=== PATIENT | male | born 1960 | race Caucasian/White ===

== ENCOUNTER 2020-06-30 08:24 | Emergency (ER) | payer OTHER, SELFPAY ==
[2020-06-30 08:27] VITALS: BP 192/114; PULSE 69; RESP 19; O2SAT 94; BMI 37.3
--- NOTE | 2020-06-30 08:31 | CT_ITS ---
WS: [id number] CT HEAD NONCONTRAST HISTORY: Symptoms of Acute Stroke TECHNIQUE: Contiguous axial imaging performed through the brain in 2.5 mm imaging. Bone and soft tiss ue windows. Sagittal and coronal reformats reviewed. All CT scans at [facility] use at ast one of these dose optimization techniques: automated exposure control; mA and/or kV adjustment pe r patient size (includes targeted exams where dose is matched to clinical indication); or iterative r econstruction. DLP: 914.74 mGy.cm COMPARISON: None available. No acute intracranial hemorrhage, midline shift or mass effect. Mild chronic microvascular ischemic c hanges. No atrophy or prior infarcts or herniation. 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 Ventricles: Normal size with no hydrocephalus. No inferior displacement of the cerebellar tonsils. Paranasal sinuses: Extensive opacification of the ethmoid air cells. Moderate opacification of the fr ontal sinuses and frontal ethmoid recess and sphenoid sinus. No air-fluid levels. Mild mucoperiosteal thickening maxillary sinuses. Mastoid air cells: Well pneumatized. Calvarium and scalp: Skull is intact with no soft tissue edema or swelling. CT/CT head wo con* [id number] IMPRESSION: 1. No acute intracranial hemorrhage or edema. 2. Mild chronic microvascular ischemic disease. 3. Pansinusitis. 4. 10 mm pineal gland cyst.
--- NOTE | 2020-06-30 08:31 | ECG_ITS ---
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 Measurements Intervals [place] Rate: 71 P: 48 LA: 160 QRS: 7 QRSD: 94 T: 36 QT: 351 QTc: 382 Interpretive Statements SINUS RHYTHM WITH SINUS ARRHYTHMIA No previous ECG available for comparison Electronically Signed On 06-30-2020 19:10:14 WHITE WASHER PILER by Paris Parada M.D. [id number] f
[2020-06-30 08:37] VITALS: O2SAT 95
--- NOTE | 2020-06-30 08:40 | PC.NURSE ---
pt to CT by stretcher with tech
[2020-06-30] MEDS: hyDRALAzine 50 mg Tablet PO (09:03)
[2020-06-30] MEDS: amlodipine 5 mg Tablet PO (09:05)
[2020-06-30 09:08] VITALS: BP 168/105; PULSE 71; RESP 14; O2SAT 92
[2020-06-30 09:15] LABS: Basophils # 0.1 10^3/uL (0.0-0.1); Basophils % 0.9 %; Eosinophils # 0.6 10^3/uL (0.0-0.8); Eosinophils % 9.7 %; Hemoglobin 16.9 g/dL (11.7-16.6); Lymphocytes # 1.9 10^3/uL (0.8-4.8); Lymphocytes % 33.4 %; Mean Corpuscular HGB Conc 33.1 g/dL (30.0-36.0); Mean Corpuscular Hemoglobin 30.1 pg (28.0-34.0); Mean Corpuscular Volume 90.9 fL (80-94); Mean Platelet Volume 9.2 fL (7.4-10.4); Monocytes # 0.6 10^3/uL (0.2-0.9); Monocytes % 10.8 %; Neutrophils # 2.54 10^3/uL (1.8-7.7); Neutrophils % 44.8 %; Nucleated Red Blood Cells % 0 %; Platelet Count 228 10^3/cmm (130-400); Red Blood Count 5.61 10^6/uL (4.1-5.3); Red Cell Distribution Width 12.5 % (12.1-15.1); White Blood Count 5.7 10^3/uL (4.0-10.0)
--- NOTE | 2020-06-30 09:15 | W.ED.NEUROSD ---
HPI - Neuro Symptoms/Deficit General: Chief Complaint: Neuro Symptoms/Deficit Stated Complaint: stroke-like symptoms Time Seen by Provider: 06/30/20 08:28 History of Present Illness: HPI Narrative: 60-year-old male presents to the emergency room with complaints of right-sided weakness. He had numbness and tingling some weakness on the right side yesterday began while he was driving in a car it resolved spontaneously. He had a second episode this morning while at rest which again resolved spontaneously. Both episode lasted about 30 minutes. Yesterday he was seen in a walk-in clinic afterward he was noticed that his blood pressure was elevated but it improved spontaneously and he had no change in his medication. He is on lisinopril and metoprolol he has not run out of his medications or made any changes recently. He denies any chest pain. He is not having difficulty with speech or swallowing or vision with these episodes, he has had some difficulty with balance. Particularly yesterday when he had the episode of right-sided weakness he was going up some stairs he got the numbness tingling and weakness and had some dizziness he sat for a time and seem to get better when he first stood up he states his balance felt significantly altered. That has also completely resolved at this point. Denies any other recent symptoms of illness and no chest pain abdominal pain difficulty with bowel bladder or breathing. Onset (ago): hour(s) Timing confirmed by: spouse Location: right face, right arm and right leg History of same: Yes Severity: mild Quality: numb and tingling Relieving factors: none Exacerbating factors: none Associated symptoms: Deny chest pain, cough, diaphoresis, fevers/chills, headache(s), anorexia, malaise, nausea, seizures, short of breath, syncope, tingling, vertigo, vomiting, weakness or other Treatments Prior to Arrival: none Review of Systems Const: Denies: malaise or diaphoresis ENMT: Denies: throat pain, ear or mastoid pain, nasal discharge or nasal congestion Card: Denies: chest pain or syncope Resp: Denies: dyspnea, productive cough or non-productive cough GI: Denies: nausea or vomiting : Denies: flank pain, dysuria, urinary frequency or urinary urgency Skin/Breast: Denies: rash or pruritus Neuro: Denies: vertigo PFS ED PFSH: Medical History (Updated 06/30/20 @ 15:08 by Gordon Cruz DO) Hypertension NIH stroke score NIHSS: Level Of Consciousness - 1a: 0 Level Of Consciousness Questions - 1b: Both Correct Level Of Consciousness Commands - 1c: Both Correct Best Gaze - 2: Normal Visual Obregon - 3: No Visual Loss Facial Palsy - 4: Normal Motor Arm Right - 5: No Drift Motor Arm Left - 5: No Drift Motor Leg Right - 6: No Drift Motor Leg Left - 6: No Drift Limb Ataxia - 7: Absent Sensory - 8: Normal Best Language - 9: No Aphasia Dysarthia - 10: Normal Extinction And Inattention - 11: 0 Score: Total Score: 0 Physical Exam Const: COMMON NORMALS: no acute distress GENERAL APPEARANCE: cooperative and comfortable ORIENTATION/CONSCIOUSNESS: Yes awake, Yes oriented to person, Yes oriented to place and Yes oriented to time HENMT: COMMON NORMALS: normocephalic, atraumatic, hearing grossly normal bilaterally, external ears normal, EAC's normal, TM's normal bilaterally, Normal nasal mucous membranes and turbinates present, moist oral mucous membranes and oropharynx normal HEAD & SCALP: normocephalic and atraumatic NOSE: Normal nasal mucous membranes and turbinates present EXTERNAL EAR: Yes external ears normal EXTERNAL AUDITORY CANAL: EAC's normal TYMPANIC MEMBRANE: TM's normal bilaterally Eye: COMMON NORMALS: Equal, round and reactive pupils present, EOMs intact bilaterally, conjunctivae normal and no scleral icterus CONJUNCTIVA: Yes conjunctivae normal PUPIL: Yes Equal, round and reactive pupils present Neck/C-Spine: COMMON NORMALS: full ROM, no lymphadenopathy, supple and no JVD Lymph: LYMPHATIC: no lymphadenopathy noted and no lymphedema noted Resp: COMMON NORMALS: normal respiratory effort, No retractions, No use of accessory muscles and clear to auscultation bilaterally AUSCULTATION: clear to auscultation bilaterally Cardio: COMMON NORMALS: no JVD, regular rate, regular rhythm and No murmurs present (Cardio) RATE: regular rate RHYTHM: regular rhythm GI: COMMON NORMALS: Soft to palpation and No hepatosplenomegaly present AUSCULTATION: Yes normoactive bowel sounds PALPATION: Yes Soft to palpation, No Tenderness to palpation present (GI), No Guarding due to palpation present (GI) and Yes No hepatosplenomegaly present Extremity: COMMON NORMALS: normal to inspection, capillary refill normal, no clubbing, cyanosis or edema, no calf tenderness and no pedal edema Neuro: SENSORIUM/ORIENTATION: Yes oriented to person, Yes oriented to place and Yes oriented to time Skin: COMMON NORMALS: no rashes or lesions noted GENERAL SKIN EXAM: no rashes or lesions noted Course Vital Signs: Vital signs: Vital Signs Pulse Rate 64 06/30/20 10:56 Respiratory Rate 13 06/30/20 10:56 Blood Pressure 135/89 06/30/20 10:56 Pulse Oximetry 96 06/30/20 10:56 MDM - Neuro Symptoms/Deficit MDM Narrative: Medical decision making narrative: Blood pressure is improved patient no focal neurologic deficits on presentation and none at the time of discharge. We will start him on amlodipine continue his other medications also start him on atorvastatin and aspirin schedule outpatient carotid duplex and echocardiogram follow-up with primary care doctor next week. Lab Data: Labs: Lab Results 06/30/20 06/30/20 06/30/20 Range/Units 09:03 09:03 09:03 WBC 5.7 (4.0-10.0) 10^3/ uL RBC 5.61 H (4.1-5.3) 10^6/u L Hgb 16.9 H (11.7-16.6) g/dL Hct 51.0 (42.0-52.0) % MCV 90.9 (80-94) fL MCH 30.1 (28.0-34.0) pg MCHC 33.1 (30.0-36.0) g/dL RDW 12.5 (12.1-15.1) % Plt Count 228 (130-400) 10^3/c mm MPV 9.2 (7.4-10.4) fL Neut % (Auto) 44.8 % Lymph % (Auto) 33.4 % [place] % (Auto) 10.8 % Eos % (Auto) 9.7 % Baso % (Auto) 0.9 % Neut # (Auto) 2.54 (1.8-7.7) 10^3/u L Lymph # (Auto) 1.9 (0.8-4.8) 10^3/u L [place] # (Auto) 0.6 (0.2-0.9) 10^3/u L Eos # (Auto) 0.6 (0.0-0.8) 10^3/u L Baso # (Auto) 0.1 (0.0-0.1) 10^3/u L Nucleated RBC % (a uto) 0 % Nucleated RBCs # 0.0 /100WBC PT 12.90 (12.1-14.9) SECO NDS INR 0.94 (0.8-1.2) APTT 26.6 (23.9-36.7) SECO NDS Sodium 137 (136-145) mmol/L Potassium 4.4 (3.5-5.1) mmol/L Chloride 101 (98-107) mmol/L Carbon Dioxide 30 H (22-29) mmol/L Anion Gap 10.4 (5-19) BUN 11 (6-20) mg/dL Creatinine 0.8 (0.7-1.2) mg/dL GFR Calculation 99.3 (90-130) mL/min Glucose 99 (65-115) mg/dL POC Glucose (70-110) mg/dL Calculated Osmolal ity 283 L (285-295) mOsm/k g Calcium 9.5 (8.5-10.5) mg/dL Total Bilirubin 0.8 (0.15-1.2) mg/dL AST 33 (0-40) U/L ALT 61 H (0-41) U/L Alkaline Phosphata se 57 (40-130) IU/L Total Protein 6.7 (6.6-8.7) g/dL Albumin 4.2 (3.5-5.2) g/dL Globulin 2.5 (1.3-4.6) g/dL Urine Color (Yellow) Urine Appearance (CLEAR) Urine pH (5-7) Ur Specific Gravit y (1.005-1.030) Urine Protein (Negative) Urine Glucose (UA) (Normal) Urine Ketones (Negative) Urine Blood (Negative) Urine Nitrate (Negative) Urine Bilirubin (Negative) Urine Urobilinogen (Negative) mg/dL Ur Leukocyte Onelia ase (Negative) Urine Opiates Scre en (Negative) ng/mL Ur Barbiturates Sc reen (Negative) ng/mL Ur Phencyclidine S crn (Negative) ng/mL Ur Amphetamines Sc reen (Negative) ng/mL U Benzodiazepines Scrn (Negative) ng/mL Urine Cocaine Scre en (Negative) ng/mL U Marijuana (THC) Screen (Negative) ng/mL 06/30/20 06/30/20 06/30/20 Range/Units 09:12 10:27 10:27 WBC (4.0-10.0) 10^3/ uL RBC (4.1-5.3) 10^6/u L Hgb (11.7-16.6) g/dL Hct (42.0-52.0) % MCV (80-94) fL MCH (28.0-34.0) pg MCHC (30.0-36.0) g/dL RDW (12.1-15.1) % Plt Count (130-400) 10^3/c mm MPV (7.4-10.4) fL Neut % (Auto) % Lymph % (Auto) % [place] % (Auto) % Eos % (Auto) % Baso % (Auto) % Neut # (Auto) (1.8-7.7) 10^3/u L Lymph # (Auto) (0.8-4.8) 10^3/u L [place] # (Auto) (0.2-0.9) 10^3/u L Eos # (Auto) (0.0-0.8) 10^3/u L Baso # (Auto) (0.0-0.1) 10^3/u L Nucleated RBC % (a uto) % Nucleated RBCs # /100WBC PT (12.1-14.9) SECO NDS INR (0.8-1.2) APTT (23.9-36.7) SECO NDS Sodium (136-145) mmol/L Potassium (3.5-5.1) mmol/L Chloride (98-107) mmol/L Carbon Dioxide (22-29) mmol/L Anion Gap (5-19) BUN (6-20) mg/dL Creatinine (0.7-1.2) mg/dL GFR Calculation (90-130) mL/min Glucose (65-115) mg/dL POC Glucose 86 (70-110) mg/dL Calculated Osmolal ity (285-295) mOsm/k g Calcium (8.5-10.5) mg/dL Total Bilirubin (0.15-1.2) mg/dL AST (0-40) U/L ALT (0-41) U/L Alkaline Phosphata se (40-130) IU/L Total Protein (6.6-8.7) g/dL Albumin (3.5-5.2) g/dL Globulin (1.3-4.6) g/dL Urine Color Yellow (Yellow) Urine Appearance Clear (CLEAR) Urine pH 5 (5-7) Ur Specific Gravit y 1.010 (1.005-1.030) Urine Protein Neg (Negative) Urine Glucose (UA) Norm (Normal) Urine Ketones Negative (Negative) Urine Blood Neg (Negative) Urine Nitrate Negative (Negative) Urine Bilirubin Neg (Negative) Urine Urobilinogen Norm (Negative) mg/dL Ur Leukocyte Onelia ase Negative (Negative) Urine Opiates Scre en Negative (Negative) ng/mL Ur Barbiturates Sc reen Negative (Negative) ng/mL Ur Phencyclidine S crn Negative (Negative) ng/mL Ur Amphetamines Sc reen Negative (Negative) ng/mL U Benzodiazepines Scrn Negative (Negative) ng/mL Urine Cocaine Scre en Negative (Negative) ng/mL U Marijuana (THC) Screen Positive H (Negative) ng/mL Discharge Plan Discharge Patient Disposition: Home Clinical Impression: Hypertension, Transient cerebral ischemia Condition: Stable Prescriptions: New aspirin 81 mg tablet,delayed release (DR/EC) 81 mg PO DAILY Qty: 30 RF: 0 atorvastatin 40 mg tablet 40 mg PO DAILY Qty: 30 RF: 0 amlodipine 5 mg tablet 5 mg PO DAILY Qty: 30 RF: 0 No Action metoprolol tartrate 100 mg tablet 100 mg PO Q12H RF: 0 lisinopril 20 mg tablet 20 mg PO DAILY RF: 0 alprazolam 0.25 mg tablet 0.25 mg PO DAILY PRN (Reason: Anxiety) RF: 0 Discharge Orders: Discharge ED (Routine); Ordered 06/30/20 Ordered By: Gordon Cruz Referrals: Aranza Proctor DO [Primary Care Provider] - Discharge Diet: Usual diet Discharge Activity: Limit activity as instructed Activity Restrictions/Additional Instructions: No strenuous activity. Follow-up with your primary care doctor within the next week to reevaluate blood pressure. Start aspirin other medications as listed above. Coding Level of Care Code ED Coconut Boiler for Jose Alicia
[2020-06-30 09:16] LABS: Glucose Point of Care 86 mg/dL (70-110)
[2020-06-30 09:35] LABS: INR 0.94 (0.8-1.2); Partial Thromboplastin Time 26.6 SECONDS (23.9-36.7)
[2020-06-30 09:40] LABS: Alanine Aminotransferase 61 U/L (0-41); Albumin Level 4.2 g/dL (3.5-5.2); Alkaline Phosphatase 57 IU/L (40-130); Blood Urea Nitrogen 11 mg/dL (6-20); Calcium 9.5 mg/dL (8.5-10.5); Carbon Dioxide 30 mmol/L (22-29); Chloride 101 mmol/L (98-107); Globulin 2.5 g/dL (1.3-4.6); Glomerular Filtration Rate 99.3 mL/min (90-130); Glucose 99 mg/dL (65-115); Osmolality Calculated 283 mOsm/kg (285-295); Sodium 137 mmol/L (136-145); Total Bilirubin 0.8 mg/dL (0.15-1.2); Total Protein 6.7 g/dL (6.6-8.7)
[2020-06-30 09:42] LABS: Anion Gap 10.4 (5-19); Aspartate Amino Transferase 33 U/L (0-40); Potassium 4.4 mmol/L (3.5-5.1)
[2020-06-30 10:29] VITALS: BP 141/76; PULSE 61; RESP 21; O2SAT 95
[2020-06-30 10:33] LABS: Add Urine Microscopic? NO
[2020-06-30 10:44] LABS: Bilirubin Urine Neg (Negative); Blood Urine Neg (Negative); Glucose Urine UA Norm (Normal); Ketones Urine Negative (Negative); Leukocyte Esterase Urine Negative (Negative); Nitrate Urine Negative (Negative); Protein Urine Neg (Negative); Urine Appearance Clear (CLEAR); Urine Color Yellow (Yellow); Urobilinogen Urine Norm (Negative); pH Urine 5 (5-7)
[2020-06-30 10:52] LABS: Amphetamines Screen Urine Negative (Negative); Barbiturates Screen Urine Negative (Negative); Benzodiazepines Screen Urine Negative (Negative); Cocaine Screen Urine Negative (Negative); Opiate Screen Urine Negative (Negative); PCP Screen Urine Negative (Negative); THC Screen Urine Positive (Negative)
[2020-06-30 10:56] VITALS: BP 135/89; PULSE 64; RESP 13; O2SAT 96
== END 2020-06-30 10:56 | disposition home or self-care (01) ==
PROVIDERS: Emergency Provider Family Medicine; PCP Family Medicine
DX: G45.9 Transient cerebral ischemic attack, unspecified (principal); I10 Essential (primary) hypertension
CPT/HCPCS: 12345; 36416; 70450; 80053; 80306; 81003; 82962; 85025; 85610; 85730; 93005; 99283; 99284

== ENCOUNTER 2020-06-30 15:05 | Observation (INO) | payer OTHER, SELFPAY ==
[2020-06-30 15:11] VITALS: BP 166/104; PULSE 82; RESP 18; TEMP 36.6; O2SAT 97; BMI 37.3
--- NOTE | 2020-06-30 16:06 | ED_ITS ---
HPI - Neuro Symptoms/Deficit General: Chief Complaint: Neuro Symptoms/Deficit Stated Complaint: right sided numbness Time Seen by Provider: 06/30/20 15:18 History of Present Illness: HPI Narrative: 60 yo with right-sided numbness and tingling. He was seen earlier today with accelerated hypertension which was treated his symptoms had resolved by the time he had come here. He is head CT was negative he had a similar episode the day prior. He was discharged home on aspirin atorvastatin scheduled for outpatient carotid and echocardiogram and MRI of the head. He returns a few hours later having had another episode that lasted 5 minutes that is completely resolved. His blood pressure slightly elevated but improved from what it was when he arrived at the first time. She denies any chest pain. Otherwise no changes since he was seen previously Onset (ago): minute(s) Location: right arm and right leg History of same: Yes Severity: mild Quality: numb and tingling Relieving factors: none Exacerbating factors: none Associated symptoms: Deny chest pain, cough, diaphoresis, fevers/chills, headache(s), anorexia, malaise, nausea, seizures, short of breath, syncope, tingling, vertigo, vomiting or weakness Treatments Prior to Arrival: none Review of Systems Const: Denies: malaise or diaphoresis ENMT: Denies: throat pain, ear or mastoid pain, nasal discharge or nasal congestion Card: Denies: chest pain or syncope Resp: Denies: dyspnea, productive cough or non-productive cough GI: Denies: nausea or vomiting : Denies: flank pain, dysuria, urinary frequency or urinary urgency Skin/Breast: Denies: rash or pruritus Neuro: Denies: headache(s) or vertigo PFS ED PFSH: Medical History Hypertension NIH stroke score NIHSS: Level Of Consciousness - 1a: 0 Level Of Consciousness Questions - 1b: Both Correct Level Of Consciousness Commands - 1c: Both Correct Best Gaze - 2: Normal Visual Obregon - 3: No Visual Loss Facial Palsy - 4: Normal Motor Arm Right - 5: No Drift Motor Arm Left - 5: No Drift Motor Leg Right - 6: No Drift Motor Leg Left - 6: No Drift Limb Ataxia - 7: Absent Sensory - 8: Normal Best Language - 9: No Aphasia Dysarthia - 10: Normal Extinction And Inattention - 11: 0 Score: Total Score: 0 Physical Exam Const: COMMON NORMALS: no acute distress GENERAL APPEARANCE: cooperative and comfortable ORIENTATION/CONSCIOUSNESS: Yes awake, Yes oriented to person, Yes oriented to place and Yes oriented to time HENMT: COMMON NORMALS: normocephalic, atraumatic, hearing grossly normal b ilaterally, external ears normal, EAC's normal, TM's normal bilaterally, Normal nasal mucous membranes and turbinates present, moist oral mucous membranes and oropharynx normal HEAD & SCALP: normocephalic and atraumatic NOSE: Normal nasal mucous membranes and turbinates present EXTERNAL EAR: Yes external ears normal EXTERNAL AUDITORY CANAL: EAC's normal TYMPANIC MEMBRANE: TM's normal bilaterally Eye: COMMON NORMALS: Equal, round and reactive pupils present, EOMs intact bilaterally, conjunctivae normal and no scleral icterus CONJUNCTIVA: Yes conjunctivae normal PUPIL: Yes Equal, round and reactive pupils present Neck/C-Spine: COMMON NORMALS: full ROM, no lymphadenopathy, supple and no JVD Lymph: LYMPHATIC: no lymphadenopathy noted and no lymphedema noted Resp: COMMON NORMALS: normal respiratory effort, No retractions, No use of accessory muscles and clear to auscultation bilaterally AUSCULTATION: clear to auscultation bilaterally Cardio: COMMON NORMALS: no JVD, regular rate, regular rhythm and No murmurs present (Cardio) RATE: regular rate RHYTHM: regular rhythm GI: COMMON NORMALS: Soft to palpation and No hepatosplenomegaly present AUSCULTATION: Yes normoactive bowel sounds PALPATION: Yes Soft to palpation, No Tenderness to palpation present (GI), No Guarding due to palpation present (GI) and Yes No hepatosplenomegaly present Extremity: COMMON NORMALS: normal to inspection, capillary refill normal, no clubbing, cyanosis or edema, no calf tenderness and no pedal edema Neuro: SENSORIUM/ORIENTATION: Yes oriented to person, Yes oriented to place and Yes oriented to time Skin: COMMON NORMALS: no rashes or lesions noted GENERAL SKIN EXAM: no rashes or lesions noted Course Vital Signs: Vital signs: Vital Signs Temperature 97.8 F 06/30/20 15:11 Pulse Rate 73 06/30/20 16:20 Respiratory Rate 18 06/30/20 16:20 Blood Pressure 129/65 06/30/20 16:20 Pulse Oximetry 94 06/30/20 16:20 Discharge Plan Discharge Patient Disposition: Admitted As Inpatient Admit Provider: Simone Sánchez Coding Level of Care Code ED Crm Business Analyst for Chg Fwd Exam Comprehensive
[2020-06-30 16:20] VITALS: BP 129/65; PULSE 73; RESP 18; O2SAT 94
[2020-06-30 17:00] VITALS: BP 149/95; PULSE 66; RESP 18; TEMP 36.6; O2SAT 95
--- NOTE | 2020-06-30 17:00 | PC.NURSE ---
report called to johnnie ross
--- NOTE | 2020-06-30 18:06 | P.HP_ITS ---
Providers/Chief Complaint Admitting Physician: Simone Sánchez Primary Care Provider: Aranza Proctor DO Chief Complaint: right sided numbness History of Present Illness Nolan Toribio is a 60 year old male with a past medical history significant for hypertension, osteoarthritis and binge alcoholism who presented to the hospital with multiple episodes of right-sided numbness. Patient stated initial episode was yesterday afternoon during which time he stated numbness was again on right upper lower extremity as well as right-sided face. Patient stated lasted for few minutes and spontaneously resolved. Also noted slight weakness on right side as well however stated it was very subtle. Presented to emergency room after 2nd episode earlier today. Symptoms had resolved by the time of arrival. Patient was started on aspirin, statins and antihypertensives. He was discharged from the ER however again return to the hospital after similar episode. Denies any additional symptoms including chest pain or shortness of breath. No recent fever, chills, nausea vomiting. Denies any prior history of strokes, heart disease, diabetes or lung disease.Laboratory workup today showed a WBC of 5.6, hemoglobin is 16.9, hematocrit of 51.0 and a platelet count of 228.Sodium 137, potassium 4.4, chloride 101, bicarb 30, BUN 11 and creatinine is 0.8.AST of 33, ALT of 61 and alkaline phosphatase of 57. Urinalysis was normal. Urinary drug screen showed positive cannabis. A CT head was performed on arrival which did not show any evidence of acute intracranial abnormality. Review of Systems General: Reports: 10 or more systems reviewed and unremarkable except in HPI and below Medications/Allergies Home Medications Medication Instructions Recorded Confirmed Last Taken Type alprazolam 0.25 mg PO DAILY PRN 06/30/20 06/30/20 06/30/20 History amlodipine 5 mg PO DAILY #30 tab 06/30/20 06/30/20 Unknown Rx aspirin 81 mg PO DAILY@0600 06/30/20 06/30/20 06/30/20 History atorvastatin 40 mg PO DAILY #30 tab 06/30/20 06/30/20 Unknown Rx lisinopril 20 mg PO DAILY@0600 06/30/20 06/30/20 06/30/20 History metoprolol tartrate 100 mg PO Q12H 06/30/20 06/30/20 06/30/20 History Allergies Allergy/AdvReac Type Severity Reaction Status Date / Time No Known Allergies Allergy Verified 06/30/20 08:30 PFSH Acute PFSH: Medical History (Updated 06/30/20 @ 18:13 by Simone Sánchez MD) Alcohol abuse Hypertension Surgical History (Updated 06/30/20 @ 18:13 by Simone Sánchez MD) S/P anal fissurectomy Social History (Updated 06/30/20 @ 18:14 by Simone Sánchez MD) Smoking and tobacco status: never smoked Alcohol intake: current Alcohol use comment: patient stated he drinks a pint on weekends and days he is not working Substance/Drug Use: current Substance/Drug use type: Marijuana Vitals/I&O/Wt Last Vital Signs Temp 97.9 F 06/30/20 17:00 Pulse 66 06/30/20 17:00 Resp 18 06/30/20 17:00 BP 149/95 06/30/20 17:00 Pulse Ox 95 06/30/20 17:00 Weight last 48 hrs Weight 117.934 kg Physical Exam Const: COMMON NORMALS: no acute distress, average body habitus and well nourished HENMT: COMMON NORMALS: normocephalic and atraumatic FACE & SINUS: normal facial exam Neck/C-Spine: COMMON NORMALS: full ROM Chest: COMMONS NORMALS: normal inspection of the chest Resp: COMMON NORMALS: normal respiratory effort, No retractions, No use of accessory muscles and clear to auscultation bilaterally Cardio: COMMON NORMALS: no JVD, regular rate, regular rhythm, S1 normal heart sound present, S2 normal heart sound present and No murmurs present (Cardio) GI: COMMON NORMALS: Normal to inspection, nondistended, normoactive bowel sounds present, Soft to palpation, non-tender and No hepatosplenomegaly present Extremity: COMMON NORMALS: normal to inspection, full ROM, no calf tenderness and no pedal edema Neuro: COMMON NORMALS: patient oriented x3, CN's II-XII intact bilaterally, moves all extremities, no focal motor deficits, no sensory deficits noted, deep tendon reflexes 2+ bilaterally and gait normal SENSORIUM/ORIENTATION: Yes alert, Yes oriented to person and Yes oriented to place Psych: COMMON NORMALS: mental status grossly normal A&P Assessment and plan (1) Hypertension: Status: Acute (2) Transient cerebral ischemia: Status: Acute (3) Alcohol abuse: Status: Acute Patient will be placed in observation overnight NIH on arrival was 0 CT head without acute intracranial abnormality Continue monitoring neuro checks /NIH Continue cardiac telemetry monitoring Will obtain echocardiogram Carotid ultrasound Aspirin 81 mg daily Lipitor 40 mg oral daily Check lipid panel and A1c in a.m. NPO until speech evaluation Start cardiac diet afterwards if no risk of aspiration Will hold blood pressure medications to allow for permissive hypertension Repeat CBC and CMP in a.m. Attestations Medical Necessity Statement*: Anticipate less than 2 midnight stay in hospital for evaluation and treatment Time Spent in Patient Care: Greater than 35 minutes (>than 50% of time spent in counselling and/or direct pt care on unit) . Coding Level of Care Code Acute Tipple Boss for Jose Alicia Diagnoses Hypertension I10 Transient cerebral ischemia G45.9 Alcohol abuse F10.10
[2020-06-30] MEDS: sodium chloride 0.9% 1,000 ML 75 ML IV (18:32)
[2020-06-30 19:02] VITALS: BP 147/85; PULSE 75; RESP 19; TEMP 36.7; O2SAT 96
[2020-07-01] VITALS: BP 132/75; PULSE 67; RESP 17; TEMP 36.5; O2SAT 93
[2020-07-01 04:00] VITALS: BP 153/94; PULSE 20; RESP 65; TEMP 36.4; O2SAT 94
[2020-07-01 04:57] LABS: Basophils # 0.1 10^3/uL (0.0-0.1); Basophils % 1.3 %; Eosinophils # 0.6 10^3/uL (0.0-0.8); Eosinophils % 10.2 %; Hematocrit 50.2 % (42.0-52.0); Hemoglobin 16.2 g/dL (11.7-16.6); Mean Corpuscular HGB Conc 32.3 g/dL (30.0-36.0); Mean Corpuscular Hemoglobin 30.2 pg (28.0-34.0); Mean Corpuscular Volume 93.7 fL (80-94); Mean Platelet Volume 9.5 fL (7.4-10.4); Monocytes # 0.6 10^3/uL (0.2-0.9); Monocytes % 10.7 %; Neutrophils # 2.23 10^3/uL (1.8-7.7); Neutrophils % 40.4 %; Nucleated Red Blood Cells % 0 %; Platelet Count 209 10^3/cmm (130-400); Red Blood Count 5.36 10^6/uL (4.1-5.3); Red Cell Distribution Width 12.5 % (12.1-15.1); White Blood Count 5.5 10^3/uL (4.0-10.0)
[2020-07-01 05:23] LABS: Alanine Aminotransferase 48 U/L (0-41); Albumin Level 3.8 g/dL (3.5-5.2); Alkaline Phosphatase 52 IU/L (40-130); Anion Gap 12.1 (5-19); Aspartate Amino Transferase 23 U/L (0-40); Blood Urea Nitrogen 10 mg/dL (6-20); Calcium 9.2 mg/dL (8.5-10.5); Carbon Dioxide 30 mmol/L (22-29); Chloride 105 mmol/L (98-107); Chol HDL Ratio 7.21 mg/dL (1.0-5.00); Cholesterol 245 mg/dL (0-200); Globulin 2.3 g/dL (1.3-4.6); Glomerular Filtration Rate 99.3 mL/min (90-130); Glucose 105 mg/dL (65-115); HDL Cholesterol 34 mg/dL (60-100); LDL Cholesterol Calculated 167 mg/dL (50-129); LDL HDL Ratio 4.91 RATIO (0.00-3.22); Osmolality Calculated 295 mOsm/kg (285-295); Potassium 4.1 mmol/L (3.5-5.1); Sodium 143 mmol/L (136-145); Total Bilirubin 0.7 mg/dL (0.15-1.2); Total Protein 6.1 g/dL (6.6-8.7); Triglycerides 219 mg/dL (0-150)
[2020-07-01 05:36] LABS: Estmated Average Glucose 117; Hemoglobin A1C 5.7 % (4.0-6.0)
--- NOTE | 2020-07-01 06:00 | USR_ITS ---
PROCEDURE INFORMATION: Exam: US Duplex Bilateral Extracranial Arteries Exam date and time: 07/01/2020 10:36 AM Age: 60 years old Clinical indication: Numbness / parasthesia; Right; Additional info: TIA TECHNIQUE: Imaging protocol: Real-time Duplex ultrasound scan of the bilateral carotid and vertebral arteries combining garcia scale, color Doppler and spectral waveform analysis. Bilateral exam. COMPARISON: No relevant prior studies available. FINDINGS: Right common carotid artery: Unremarkable. No occlusion or stenosis. Waveforms are normal. Right internal carotid artery: Mild atherosclerotic plaquing with mild less than 50% stenosis. Waveforms are normal. Right ICA/CCA ratio: Within normal limits. Right external carotid artery: No stenosis in the origin. Right vertebral artery: Unremarkable. Antegrade flow. Left common carotid artery: Unremarkable. No occlusion or stenosis. Waveforms are normal. Left internal carotid artery: Mild atherosclerotic plaquing with mild less than 50% stenosis. Waveforms are normal. Left ICA/CCA ratio: Within normal limits. Left external carotid artery: No stenosis in the origin. Left vertebral artery: Unremarkable. Antegrade flow. US/CV carotid duplex BI* [id number] IMPRESSION: Mild atherosclerotic plaquing in the proximal internal carotid arteries with mild less than 50% stenosis. REFERENCES: SRU CRITERIA. The degree of internal carotid artery stenosis is based on criteria defined by the Society of Radiologists in Ultrasound (SRU). Normal is no stenosis. Mild is less than 50% stenosis. Moderate is 50-69% stenosis. Severe is greater than 69% stenosis to near occlusion. Near occlusion is a markedly narrowed lumen. Total occlusion is no detectable patent lumen.
--- NOTE | 2020-07-01 06:00 | USCV_ITS ---
Nolan Toribio Age: 60 Gender: M : 1960 Exam Date: 07/01/2020 11:14 Ordering Phys: Simone Sánchez MD Technologist: Preeti Oneill [place] [facility] [place]: TIA BP: 154 / 76 HR: 71 Rhythm: Sinus Technical Quality: Suboptimal MEASUREMENTS (Male / Female) Normal Values 2D ECHO LV Diastolic Diameter PLAX 4.2 cm 4.2 - 5.9 / 3.9 - 5.3 cm LV Systolic Diameter PLAX 2.7 cm LV Chamber Size 3.2 cm IVS Diastolic Thickness 1.3 cm 0.6 - 1.0 / 0.6 - 0.9 cm IVS Systolic Thickness 2.0 cm LVPW Diastolic Thickness 1.6 cm 0.6 - 1.0 / 0.6 - 0.9 cm LVPW Systolic Thickness 1.9 cm RV Chamber Size 3.0 cm LVOT Diameter 2.0 cm LV Ejection Fraction 2D Teich 63.6 % LA Diameter 3.7 cm LA Width 3.1 cm LA Height 4.1 cm RA Width 2.6 cm RA Height 4.6 cm Aorta at Sinotubular Diameter 2.9 cm M-MODE LV Diastolic Diameter MM 6.2 cm 4.2 - 5.9 / 3.9 - 5.3 cm LV Systolic Diameter MM 3.8 cm LV Ejection Fraction MM Teich 68.7 % IVS Diastolic Thickness MM 1.0 cm 0.6 - 1.0 / 0.6 - 0.9 cm IVS Systolic Thickness MM 1.4 cm LVPW Diastolic Thickness MM 1.3 cm 0.6 - 1.0 / 0.6 - 0.9 cm LVPW Systolic Thickness MM 1.7 cm RV Diastolic Diameter MM 1.0 cm Aortic Annulus Diameter 3.6 cm LA Ao Ratio MM 1.1 MV E Point Septal Separation 0.7 cm DOPPLER AV Peak Velocity 131.7 cm/s LVOT Peak Velocity 99.0 cm/s AV Area Cont Eq vti 2.7 cm squared AV Area Cont Eq pk 2.5 cm squared MV Area PHT 5.0 cm squared Mitral E to A Ratio 1.2 MV E' Velocity 53.0 cm/s Mitral E to MV E' Ratio 9.5 Mitral E to LV E' Lateral Ratio 8.9 Mitral E to LV E' Septal Ratio 10.4 TV Peak E Velocity 60.0 cm/s Right Atrial Pressure 3.0 mmHg PV Peak Velocity 92.0 cm/s RV Acceleration Time 0.1 s RV Ejection Time 0.3 s RV AcT/ET 0.3 FINDINGS Left Ventricle Normal left ventricular cavity size. No regional wall motion abnormalities. Normal left ventricular systolic function. Left ventricular ejection fraction is estimated at 60 %. Grade I/IV diastolic dysfunction (abnormal relaxation filling pattern), normal to mildly elevated filling pressures. Right Ventricle The right ventricle is normal in size and function. Right Atrium The right atrium is normal in size. Left Atrium The left atrium is normal in size. Mitral Valve Mildly thickened mitral valve. No mitral valve stenosis. Trace mitral valve regurgitation. Aortic Valve Aortic valve sclerosis without stenosis but trace regurgitation. Tricuspid Valve Structurally normal tricuspid valve without significant stenosis or regurgitation. Pulmonary artery systolic pressure is normal. Pulmonic Valve Structurally normal pulmonic valve without significant stenosis. There is no pulmonic regurgitation. Pericardium Normal pericardium without effusion. Aorta Normal ascending aorta dimension. CONCLUSIONS 1-Normal left ventricular cavity size. No regional wall motion abnormalities. Normal left ventricular systolic function. Left ventricular ejection fraction is estimated at 60 %. Grade I/IV diastolic dysfunction (abnormal relaxation filling pattern), normal to mildly elevated filling pressures. 2-Mildly thickened mitral valve. No mitral valve stenosis. Trace mitral valve regurgitation. 3-Aortic valve sclerosis without stenosis but trace regurgitation. 4-There is no pericardial effusion. 5-Right atrial pressure is around 5 mm of mercury. 6-There are no prior echocardiogram studies to compare. Jorge Alarcon MD (Electronically Signed) Final Date: 01 July 2020 15:40 S
[2020-07-01 07:28] VITALS: BP 154/76; PULSE 64; RESP 18; TEMP 36.6; O2SAT 94
--- NOTE | 2020-07-01 09:06 | PC.OT ---
OT EVALUATION ORDERS RECEIVED. OT SCREEN COMPLETED; PATIENT SHOWS NO DEFICITS IN ADL, UE MX STRENGTH OR ROM. REPORTS NUMBNESS RELATED TO CARPAL TUNNEL. NO FURTHER SKILLED OT REQUIRED.
[2020-07-01] MEDS: aspirin 81 mg EC Tablet PO (09:30)
[2020-07-01] MEDS: sodium chloride 0.9% 1,000 ML 75 ML IV (09:30)
[2020-07-01 10:56] VITALS: BP 148/85; PULSE 80; RESP 17; TEMP 36.6; O2SAT 93
[2020-07-01 15:17] VITALS: BP 169/83; PULSE 83; RESP 17; TEMP 36.7; O2SAT 93
[2020-07-01 17:09] VITALS: BP 169/83; PULSE 83; RESP 17; TEMP 36.7; O2SAT 93
--- NOTE | 2020-07-01 20:28 | P.DS_ITS ---
Discharge Providers Date of Admission: 06/30/20 16:14 Date of Discharge: July 11, 2020 Attending Provider at Admission: Siomne Sánchez Attending Provider at Discharge: Simone Sánchez Primary Care Provider: Aranza Proctor DO Diagnoses at Discharge Discharge Diagnosis (1) Hypertension: Status: Inactive (2) Transient cerebral ischemia: Status: Inactive (3) Alcohol abuse: Status: Acute Reason for Visit Reason for Visit: right sided numbness Hospital Course Hospital Course 60 year old male with a past medical history significant for hypertension, osteoarthritis and binge alcoholism who presented to the hospital with multiple episodes of right-sided numbness. Patient stated initial episode was yesterday afternoon during which time he stated numbness was again on right upper lower extremity as well as right-sided face. Patient stated lasted for few minutes and spontaneously resolved. Also noted slight weakness on right side as well however stated it was very subtle. Presented to emergency room after 2nd episode earlier today. Symptoms had resolved by the time of arrival. Patient was started on aspirin, statins and antihypertensives. He was discharged from [facility] however again return to the hospital after similar episode. Denies any additional symptoms including chest pain or shortness of breath. No recent fever, chills, nausea vomiting. Denies any prior history of strokes, heart disease, diabetes or lung disease.Laboratory workup today showed a WBC of 5.6, hemoglobin is 16.9, hematocrit of 51.0 and a platelet count of 228.Sodium 137, potassium 4.4, chloride 101, bicarb 30, BUN 11 and creatinine is 0.8.AST of 33, ALT of 61 and alkaline phosphatase of 57. Urinalysis was normal. Urinary drug screen showed positive cannabis. A CT head was performed on arrival which did not show any evidence of acute intracranial abnormality. Echocardiogram was performed which did not show any evidence of structural heart defect. Patient was noted have preserved EF with grade 1/4 diastolic dysfunction. Carotid Doppler did not show evidence of flow- limiting stenosis. Patient did not have any recurrence of symptoms. Physical Exam Const: COMMON NORMALS: no acute distress, average body habitus, patient oriented x3, alert and well nourished ORIENTATION/CONSCIOUSNESS: Yes oriented to person and Yes oriented to place HENMT: COMMON NORMALS: normocephalic and atraumatic HEAD & SCALP: normocephalic and atraumatic FACE & SINUS: normal facial exam Neck/C-Spine: COMMON NORMALS: full ROM and no JVD Chest: COMMONS NORMALS: normal inspection of the chest Resp: COMMON NORMALS: normal respiratory effort, No retractions, No use of accessory muscles and clear to auscultation bilaterally AUSCULTATION: clear to auscultation bilaterally Cardio: COMMON NORMALS: no JVD, regular rate, regular rhythm, S1 normal heart sound present, S2 normal heart sound present and No murmurs present (Cardio) RATE: regular rate RHYTHM: regular rhythm HEART SOUNDS: S1 normal heart sound present and S2 normal heart sound present GI: COMMON NORMALS: Normal to inspection, nondistended, normoactive bowel sounds present, Soft to palpation, non-tender and No hepatosplenomegaly present PALPATION: Yes Soft to palpation and Yes No hepatosplenomegaly present Extremity: COMMON NORMALS: normal to inspection, full ROM, no calf tenderness and no pedal edema Neuro: COMMON NORMALS: patient oriented x3, CN's II-XII intact bilaterally, moves all extremities, no focal motor deficits, no sensory deficits noted, deep tendon reflexes 2+ bilaterally and gait normal SENSORIUM/ORIENTATION: Yes alert, Yes oriented to person and Yes oriented to place Psych: COMMON NORMALS: mental status grossly normal Discharge Data Data Completed and Pending: Completed Studies During Hospitalization Category Date Time Status CV carotid duplex BI* [id number] Routine Ultrasound 07/01/20 06:00 Completed CV echo complete* [id number] Routine Ultrasound 07/01/20 06:00 Completed Vitals: Last Vital Signs Temp 98.0 F 07/01/20 17:09 Pulse 83 07/01/20 17:09 Resp 17 07/01/20 17:09 BP 169/83 07/01/20 17:09 Pulse Ox 93 07/01/20 17:09 Discharge Plan Discharge Patient Disposition: Home Condition: Stable Prescriptions: Continued metoprolol tartrate 100 mg tablet 100 mg PO Q12H RF: 0 lisinopril 20 mg tablet 20 mg PO DAILY@0600 RF: 0 alprazolam 0.25 mg tablet 0.25 mg PO DAILY PRN (Reason: Anxiety) RF: 0 atorvastatin 40 mg tablet 40 mg PO DAILY Qty: 30 RF: 0 amlodipine 5 mg tablet 5 mg PO DAILY Qty: 30 RF: 0 aspirin 81 mg tablet,delayed release (DR/EC) 81 mg PO DAILY@0600 RF: 0 Discharge Orders: Discharge Order (Routine); Ordered 07/01/20 Ordered By: Simone Sánchez Referrals: Lilian Layton MD [Physician] - 1 month ([facility] will call you Friday to set up an appointment to see Dr. Layton in approximately one month. ) Aranza Proctor DO [Primary Care Provider] - 4-7 days (Please call Dr. Proctor's office and set up an appointment to be seen next week. ) Discharge Diet: Cardiac Discharge Activity: Resume usual activity Patient Instructions: Transient Ischemic Attack (GEN), Chronic Hypertension (GEN) Activity Restrictions/Additional Instructions: Return to ER if any recurrence of symptoms Discharge Attestations Time Spent in Discharge Care*: greater than 30 min Specific Discharge Activities: educating patient, educating and/or supporting family/caregiver, discussing with pcp/other providers, discussing with protective services case worker/social workers/dc planners, documenting/other paperwork and evaluating patient/reviewing data Status at Discharge: Cognitive status at discharge: cognitively intact , Behavioral status at discharge: cooperative , Functional status at discharge: independent ambulation Overall status at discharge: patient is back to baseline Quality Metrics Clinical Quality Measures During this hospital stay, did patient experience: None Coding Level of Care Code Acute Business Management Analyst for Calving Fwd Diagnoses Hypertension I10 Transient cerebral ischemia G45.9 Alcohol abuse F10.10
== END 2020-07-01 16:05 | disposition home or self-care (01) ==
LOC: ER 15:18 → MEDSURG 16:28
PROVIDERS: Admitting Provider Hospitalist; Emergency Provider Family Medicine; PCP Family Medicine; Visit Provider Hospitalist
DX: I65.23 Occlusion and stenosis of bilateral carotid arteries (principal); I10 Essential (primary) hypertension; G45.9 Transient cerebral ischemic attack, unspecified; F10.10 Alcohol abuse, uncomplicated; M19.90 Unspecified osteoarthritis, unspecified site; Z79.82 Long term (current) use of aspirin
CPT/HCPCS: 12345; 36415; 80053; 80061; 83036; 85025; 92523; 93306; 93880; 96360; 96361; 97161; 99283; 99285; G0378; J7030

== ENCOUNTER → 2022-04-30 08:05 | Outpatient (BNVA) | payer OTHER, SELFPAY | PROVIDERS: PCP Family Medicine; Visit Provider Family Medicine | DX: B34.9 Viral infection, unspecified (principal); J10.1 Influenza due to other identified influenza virus with other respiratory manifestations | CPT/HCPCS: 87400; 87426 ==

== ENCOUNTER 2022-05-02 08:25 | Emergency (ER) | payer OTHER, SELFPAY ==
[2022-05-02 08:30] VITALS: BP 111/65; PULSE 70; RESP 16; TEMP 36.6; O2SAT 94
[2022-05-02 08:42] VITALS: BP 111/65; PULSE 70; RESP 16; O2SAT 95
--- NOTE | 2022-05-02 08:44 | CTR_ITS ---
PROCEDURE INFORMATION: Exam: CT Head Without Contrast Exam date and time: 05/02/2022 9:33 AM Age: 62 years old Clinical indication: Dizziness; Additional info: Syncope TECHNIQUE: Imaging protocol: Computed tomography of the head without contrast. Radiation optimization: All CT scans at this facility use at least one of these dose optimization techniques: automated exposure control; mA and/or kV adjustment per patient size (includes targeted exams where dose is matched to clinical indication); or iterative reconstruction. COMPARISON: CT head wo con* [id number] 06/30/2020 8:31 AM RADIATION DOSE METRICS: Total DLP (mGy-cm): 1140.18 FINDINGS: Brain: Symmetric prominence of the cortical sulci. No acute cortical infarct, mass effect, or intracranial hemorrhage. Mild small vessel ischemic change. Cerebral ventricles: Normal configuration of the ventricles. Paranasal sinuses: Bilateral paranasal sinus mucoperiosteal disease and fluid. Mastoid air cells: No mastoid effusion. Nasal cavity: Bilateral nasal cavity polypoid lesions. Bones/joints: No acute calvarial pathology. Soft tissues: Unremarkable soft tissues. When correlating with the previous study, no significant interval changes in the brain are present. CT/CT head wo con* [id number] IMPRESSION: Sinusitis, without acute intracranial pathology.
--- NOTE | 2022-05-02 08:44 | XRR_ITS ---
PROCEDURE INFORMATION: Exam: XR Chest Exam date and time: 05/02/2022 9:49 AM Age: 62 years old Clinical indication: Other: Syncope after recovering from flu a; Additional info: Syncope and collapse TECHNIQUE: Imaging protocol: Radiologic exam of the chest. Views: 1 view. COMPARISON: No relevant prior studies available. FINDINGS: Lungs: Unremarkable. No consolidation. Pleural spaces: Unremarkable. No pleural effusion. No pneumothorax. Heart/Mediastinum: Unremarkable. No cardiomegaly. Bones/joints: Unremarkable. XR/XR chest 1V portable [id number] IMPRESSION: No acute findings.
--- NOTE | 2022-05-02 08:45 | ECG_ITS ---
[facility] Test Date: 2012-06-09 Pat Name: Nolan Toribio Department: Room: Gender: Male Margarine Churn Operator: : 1960 Requested By: Jacinto Robert Order Number: [id number] Steph MD: Paris Parada M.D. Measurements Intervals [place] Rate: 64 P: 32 WA: 169 QRS: 11 QRSD: 90 T: 34 QT: 400 QTc: 414 Interpretive Statements SINUS RHYTHM No previous ECG available for comparison Electronically Signed On 05-02-2022 12:29:41 CLAIMS INVESTIGATOR by Paris Parada M.D. [id number]
--- NOTE | 2022-05-02 08:50 | W.ED.SYNCOPE ---
HPI - Syncope General: Chief Complaint: Syncope Stated Complaint: Syncope Time Seen by Provider: 05/02/22 08:29 History of Present Illness: 62-year-old male presents to the emergency department chief complaint of having a syncopal episode prior to arrival. The patient been battling influenza A which he had appetite reduction and reduced oral intake. The patient became diaphoretic he was by his in which she went unresponsive in which the patient woke up daily not reporting any chest pain or back pain or abdominal pain. He does report appetite reduction since influenza a also reports he had not eating a thing since late last night due to appetite reduction patient has also been having intermittent fevers of been resolved last couple of days he presents with his to go to the ER for further assessment management. He did report that he has been recently started on Flomax for presumed kidney stone a couple of weeks ago as well as need to take his blood pressure medication on empty stomach early this morning. Associated symptoms: Reports fever(s); Deny abdominal pain, chest pain or nausea Review of Systems General: Reports: 10 or more systems reviewed and unremarkable except in HPI and below Const: Reports: fever(s), chills, change in appetite, fatigue, malaise and diaphoresis Eyes: Denies: change in vision or blurry vision Card: Denies: chest pain or palpitations Resp: Denies: dyspnea or productive cough GI: Denies: abdominal pain, nausea or vomiting : Denies: flank pain Musc: Denies: extremity pain or extremity swelling Skin/Breast: Denies: rash or pruritus Neuro: Reports: dizziness Psych: Denies: anxiety or depression Faraz/Lymph: Denies: easy bleeding All/Imm: Denies: urticaria, throat swelling or facial swelling PFSH ED PFSH: Medical History Alcohol abuse Hypertension Surgical History S/P anal fissurectomy Social History Smoking and tobacco status: never smoked Alcohol intake: current Physical Exam Narrative: EXAM NARRATIVE: Patient appears nontoxic appears in no acute distress no current complaints. Const: COMMON NORMALS: no acute distress, patient oriented x3 and healthy appearing HENMT: COMMON NORMALS: normocephalic and atraumatic HEAD & SCALP: normocephalic and atraumatic Eye: COMMON NORMALS: Equal, round and reactive pupils present and EOMs intact bilaterally PUPIL: Yes Equal, round and reactive pupils present Neck/C-Spine: COMMON NORMALS: full ROM, supple and no JVD Lymph: LYMPHATIC: no lymphadenopathy noted Chest: COMMONS NORMALS: normal inspection of the chest and normal palpation of entire chest wall Resp: COMMON NORMALS: normal respiratory effort, No retractions and clear to auscultation bilaterally EFFORT & INSPECTION: Yes able to speak in complete sentences and Yes symmetric chest movement AUSCULTATION: clear to auscultation bilaterally Cardio: COMMON NORMALS: no JVD, regular rate and regular rhythm RATE: regular rate RHYTHM: regular rhythm GI: COMMON NORMALS: Normal to inspection, nondistended, normoactive bowel sounds present, Soft to palpation and non-tender INSPECTION: Yes normal to inspection PALPATION: Yes Soft to palpation : COMMON NORMALS: Yes no CVA tenderness BLADDER/KIDNEY EXAM: Yes no CVA tenderness Back/Pelvis: COMMON NORMALS: no CVA tenderness Extremity: COMMON NORMALS: normal to inspection and full ROM Neuro: COMMON NORMALS: patient oriented x3, CN's II-XII intact bilaterally, moves all extremities and no focal motor deficits Psych: COMMON NORMALS: mental status grossly normal, Normal thought process present, cooperative and normal affect THOUGHT PROCESS: Normal thought process present Skin: COMMON NORMALS: no rashes or lesions noted GENERAL SKIN EXAM: no rashes or lesions noted Course Vital Signs: Vital signs: Vital Signs Temperature 97.8 F 05/02/22 08:30 Pulse Rate 70 05/02/22 08:30 Respiratory Rate 16 05/02/22 08:30 Blood Pressure 111/65 05/02/22 08:30 Pulse Oximetry 94 05/02/22 08:30 Oxygen Delivery Me thod 05/02/22 08:30 MDM - Syncope Medical Decision Making Due to the patient's symptoms and condition IV was established IV fluids provided for hydration lab work and imaging will be obtained we will continue to follow. Lab work imaging came back unremarkable patient on reevaluation appears improved advised further follow-up with primary care doctor in 2 to 3 days increase his oral hydration water which advised and return the interim if any of his symptoms persist or worse. Lab Data 05/02/22 09:05 05/02/22 09:05 Radiology Impressions Chest X-Ray 05/02/22 08:44 IMPRESSION: No acute findings. Head CT 05/02/22 08:44 IMPRESSION: Sinusitis, without acute intracranial pathology. Laboratory Results WBC 4.5 10^3/uL (4.0-10.0) 05/02/22 09:05 RBC 5.33 10^6/uL (4.1-5.3) H 05/02/22 09:05 Hgb 15.9 g/dL (11.7-16.6) 05/02/22 09:05 Hct 48.6 % (42.0-52.0) 05/02/22 09:05 MCV 91.2 fl (80-94) 05/02/22 09:05 MCH 29.8 pg (28.0-34.0) 05/02/22 09:05 MCHC 32.7 g/dL (30.0-36.0) 05/02/22 09:05 RDW 13.0 % (12.1-15.1) 05/02/22 09:05 Plt Count 176 10^3/cmm (130-400) 05/02/22 09:05 MPV 10.0 fL (7.4-10.4) 05/02/22 09:05 Neut % (Auto) 44.8 % 05/02/22 09:05 Lymph % (Auto) 29.5 % 05/02/22 09:05 [place] % (Auto) 19.5 % 05/02/22 09:05 Eos % (Auto) 5.1 % 05/02/22 09:05 Baso % (Auto) 0.7 % 05/02/22 09:05 Neut # (Auto) 2.02 10^3/uL (1.8-7.7) 05/02/22 09:05 Lymph # (Auto) 1.3 10^3/uL (0.8-4.8) 05/02/22 09:05 [place] # (Auto) 0.9 10^3/uL (0.2-0.9) 05/02/22 09:05 Eos # (Auto) 0.2 10^3/uL (0.0-0.8) 05/02/22 09:05 Baso # (Auto) 0.0 10^3/uL (0.0-0.1) 05/02/22 09:05 Nucleated RBC % (auto) 0 % 05/02/22 09:05 Nucleated RBCs # 0.0 /100WBC 05/02/22 09:05 Sodium 137 mmol/L (136-145) 05/02/22 09:05 Potassium 3.6 mmol/L (3.5-5.1) 05/02/22 09:05 Chloride 98 mmol/L (98-107) 05/02/22 09:05 Carbon Dioxide 26 mmol/L (22-29) 05/02/22 09:05 Anion Gap 16.6 (5-19) 05/02/22 09:05 BUN 13 mg/dL (8-23) 05/02/22 09:05 Creatinine 0.8 mg/dL (0.7-1.2) 05/02/22 09:05 GFR Calculation 98.6 mL/min (90-130) 05/02/22 09:05 Glucose 108 mg/dL (65-115) 05/02/22 09:05 Calculated Osmolality 285 mOsm/kg (285-295) 05/02/22 09:05 Calcium 9.4 mg/dL (8.5-10.5) 05/02/22 09:05 Total Bilirubin 0.6 mg/dL (0.15-1.2) 05/02/22 09:05 AST 30 U/L (0-40) 05/02/22 09:05 ALT 36 U/L (0-41) 05/02/22 09:05 Alkaline Phosphatase 61 U/L (40-130) 05/02/22 09:05 Troponin T Baseline 7 ng/L (0-15) 05/02/22 09:05 Troponin T 120 Minute 7.23 ng/L (0-15) 05/02/22 10:57 NT-Pro-B Natriuret Pep 5 pg/mL (0-125) 05/02/22 09:05 Total Protein 6.7 g/dL (6.6-8.7) 05/02/22 09:05 Albumin 4.0 g/dL (3.5-5.2) 05/02/22 09:05 Globulin 2.7 g/dL (1.3-4.6) 05/02/22 09:05 Discharge Plan Discharge Patient Disposition: Home Clinical Impression: Syncope and collapse, Episode of generalized weakness, Vasovagal syncope, Acute dehydration Condition: Stable Prescriptions: No Action oseltamivir [Tamiflu] 75 mg capsule 75 mg PO BID 5 Days Qty: 10 0RF metoprolol tartrate 100 mg tablet 100 mg PO Q12H Rx Instructions: take at 0600,1800 lisinopril 20 mg tablet 20 mg PO DAILY@0600 alprazolam 0.25 mg tablet 0.25 mg PO DAILY PRN (Reason: Anxiety) atorvastatin 40 mg tablet 40 mg PO DAILY Qty: 30 0RF amlodipine 5 mg tablet 5 mg PO DAILY Qty: 30 0RF aspirin 81 mg tablet,delayed release (DR/EC) 81 mg PO DAILY@0600 Discharge Orders: Discharge ED (Routine); Ordered 05/02/22 Ordered By: Jacinto Robert Referrals: Jillian Ramirez MD [Primary Care Provider] - 4-7 days Discharge Diet: Advance as tolerated Discharge Activity: Increase activity as tolerated Patient Instructions: Dehydration (ED), Syncope (DC), Near Syncope (ED) Activity Restrictions/Additional Instructions: Increase your oral hydration over the next several days as well as your appetite this will reduce likelihood additional syncopal episodes and recurrence of this. Please further follow-up with primary care doctor in 3 to 5 days which is advised to return the interim if any of your symptoms persist or worse Coding Level of Care Code ED Joint Cleaning Machine Operator for Jose Fwd Exam Comprehensive
[2022-05-02] MEDS: sodium chloride 0.9% 1,000 ML 999 ML IV (09:00)
--- NOTE | 2022-05-02 09:00 | PC.NURSE ---
PT PLACED ON CONTINUOUS NIBP, SPO2, AND CM
[2022-05-02 09:23] LABS: Basophils % 0.7 %; Eosinophils # 0.2 10^3/uL (0.0-0.8); Eosinophils % 5.1 %; Hematocrit 48.6 % (42.0-52.0); Hemoglobin 15.9 g/dL (11.7-16.6); Lymphocytes # 1.3 10^3/uL (0.8-4.8); Lymphocytes % 29.5 %; Mean Corpuscular HGB Conc 32.7 g/dL (30.0-36.0); Mean Corpuscular Hemoglobin 29.8 pg (28.0-34.0); Mean Corpuscular Volume 91.2 fl (80-94); Monocytes # 0.9 10^3/uL (0.2-0.9); Monocytes % 19.5 %; Neutrophils # 2.02 10^3/uL (1.8-7.7); Neutrophils % 44.8 %; Nucleated Red Blood Cells % 0 %; Platelet Count 176 10^3/cmm (130-400); Red Blood Count 5.33 10^6/uL (4.1-5.3); White Blood Count 4.5 10^3/uL (4.0-10.0)
[2022-05-02 09:42] VITALS: BP 112/66; PULSE 68; RESP 19; O2SAT 96
[2022-05-02 09:54] LABS: Troponin(5th) Baseline 7 ng/L (0-15)
[2022-05-02 10:01] LABS: Alanine Aminotransferase 36 U/L (0-41); Alkaline Phosphatase 61 U/L (40-130); Anion Gap 16.6 (5-19); Aspartate Amino Transferase 30 U/L (0-40); Blood Urea Nitrogen 13 mg/dL (8-23); Calcium 9.4 mg/dL (8.5-10.5); Carbon Dioxide 26 mmol/L (22-29); Chloride 98 mmol/L (98-107); Globulin 2.7 g/dL (1.3-4.6); Glomerular Filtration Rate 98.6 mL/min (90-130); Glucose 108 mg/dL (65-115); NT Pro B Type Natriuretic Pept 5 pg/mL (0-125); Osmolality Calculated 285 mOsm/kg (285-295); Potassium 3.6 mmol/L (3.5-5.1); Sodium 137 mmol/L (136-145); Total Bilirubin 0.6 mg/dL (0.15-1.2); Total Protein 6.7 g/dL (6.6-8.7)
--- NOTE | 2022-05-02 11:02 | ECG_ITS ---
[facility] Test Date: 2022-05-02 Pat Name: Nolan Toribio Department: Room: Gender: Male Cafeteria Clerk: : 1960 Requested By: Jacinto Robert Order Number: [id number] Steph MD: Paris Parada M.D. Measurements Intervals [place] Rate: 69 P: 24 TX: 156 QRS: 26 QRSD: 102 T: 9 QT: 390 QTc: 418 Interpretive Statements SINUS RHYTHM Compared to ECG 06/30/2020 08:28:50 Sinus arrhythmia no longer present Electronically Signed On 05-02-2022 12:50:52 BELT BUILDER by Paris Parada M.D. [id number]
[2022-05-02 11:20] VITALS: BP 144/85; PULSE 67; RESP 18; O2SAT 91
[2022-05-02 11:22] LABS: Troponin 5 2HR 7.23 ng/L (0-15)
[2022-05-02 11:48] LABS: Troponin 5 2HR Delta 0.23 ABS# (0-10)
[2022-05-02 11:52] VITALS: BP 137/75; PULSE 71; RESP 16; O2SAT 95
== END 2022-05-02 11:50 | disposition home or self-care (01) ==
PROVIDERS: Emergency Provider Emergency Medicine; PCP Family Medicine
DX: R55 Syncope and collapse (principal); R53.1 Weakness; E86.0 Dehydration; Z79.82 Long term (current) use of aspirin; I10 Essential (primary) hypertension
CPT/HCPCS: 36415; 70450; 71045; 80053; 83880; 84484; 85025; 93005; 96360; 99285; J7030

== ENCOUNTER 2023-05-17 01:59 | Emergency (ER) | payer OTHER, SELFPAY ==
[2023-05-17] VITALS (18 sets, daily range): BP systolic 71–116; BP diastolic 47–71; PULSE 87–114; RESP 17–35; TEMP 37.1; O2SAT 95–100; BMI 30.7
--- NOTE | 2023-05-17 02:17 | XRR_ITS ---
PROCEDURE INFORMATION: Exam: XR Chest Exam date and time: 05/17/2023 2:21 AM Age: 63 years old Clinical indication: Fever and shortness of breath; Patient HX: Fever with SOB, fever , and diaphoresis. Hypotensive on monitor. TECHNIQUE: Imaging protocol: Radiologic exam of the chest. Views: 1 view. COMPARISON: CR XR chest 1V portable [id number] 05/02/2022 9:49 AM FINDINGS: Lungs: There is mild bibasilar atelectasis. Pleural spaces: No pneumothorax. Heart/Mediastinum: Unremarkable. No cardiomegaly. Diaphragm: There is new elevation of the right hemidiaphragm. Bones/joints: Multiple old left rib fractures are identified. XR/XR chest 1V portable [id number] IMPRESSION: 1. No elevation of the right hemidiaphragm. A subpulmonic effusion is not excluded. 2. Mild bibasilar atelectasis.
--- NOTE | 2023-05-17 02:19 | ECG_ITS ---
[facility] Test Date: 2023-05-17 Pat Name: Nolan Toribio Department: Room: Gender: Male Improvement Engineer: : 1960 Requested By: Sanchez Mckay Order Number: [id number] Steph MD: Rodney Ansari M.D. Measurements Intervals [place] Rate: 107 P: 8 ID: [id number] QRS: -19 QRSD: 80 T: 67 QT: 314 QTc: 420 Interpretive Statements SINUS TACHYCARDIA POSSIBLE INFERIOR MYOCARDIAL INFARCTION , PROBABLY OLD [30 ms Q WAVE IN II/aVF] ABNORMAL RHYTHM ECG Compared to ECG 05/02/2022 11:02:18 Myocardial infarct finding now present Sinus rhythm no longer present Electronically Signed On 05-17-2023 8:58:24 PAPER TESTING SUPERVISOR by Rodney Ansari M.D. [id number]
[2023-05-17 02:30] LABS: Basophils # 0.1 10^3/uL (0.0-0.1); Basophils % 0.4 %; Eosinophils % 0.3 %; Hematocrit 31.6 % (37-53); Lymphocytes # 0.6 10^3/uL (0.8-4.8); Lymphocytes % 5.6 %; Mean Corpuscular HGB Conc 33.2 g/dL (30-55); Mean Corpuscular Hemoglobin 29.1 pg (27-33); Mean Corpuscular Volume 87.5 fl (82-101); Mean Platelet Volume 9.8 fL (7.4-10.4); Monocytes # 1.5 10^3/uL (0.2-0.9); Monocytes % 13.1 %; Neutrophils # 9.24 10^3/uL (1.8-7.7); Neutrophils % 80.1 %; Nucleated Red Blood Cells % 0 %; Platelet Count 205 10^3/cmm (157-399); Red Blood Count 3.61 10^6/uL (3.85-5.65); White Blood Count 11.53 10^3/uL (3.29-11.43)
[2023-05-17 02:37] LABS: Glucose Point of Care 182 mg/dL (70-110)
--- NOTE | 2023-05-17 02:39 | W.ED.FEVER ---
Documented by User: Sanchez Mckay DO 05/17/23 05:43 HPI - Fever General: Chief Complaint: Fever Stated Complaint: fever Time Seen by Provider: 05/17/23 02:05 History of Present Illness: Presents to the ER with complaints of fever and tachycardia. Patient states that started earlier today. Fevers been ranged from 101-103 at home. Patient did take some Tylenol at home for came here. Patient was tested earlier today at the clinic for COVID and flu and a were both negative. 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 Upon arrival here patient hypotensive with a blood pressure 71/47, pulse of 114 and respirations of 20, patient was diaphoretic. Patient denies any coughs colds nausea vomiting diarrhea constipation urinary symptoms. Review of Systems General: Reports: 10 or more systems reviewed and unremarkable except in HPI and below PFSH ED PFSH: Medical History Alcohol abuse Hypertension Surgical History S/P anal fissurectomy Social History Smoking and tobacco/nicotine status: never used tobacco/nicotine Alcohol intake: current Substance/Drug Use: current Physical Exam Const: COMMON NORMALS: average body habitus, patient oriented x3, no limitations, alert and well nourished HENMT: COMMON NORMALS: normocephalic, atraumatic, hearing grossly normal bilaterally, external ears normal, Normal external nose present, moist oral mucous membranes and oropharynx normal HEAD & SCALP: normocephalic and atraumatic NOSE: Normal external nose present EXTERNAL EAR: Yes external ears normal Eye: COMMON NORMALS: Equal, round and reactive pupils present, EOMs intact bilaterally, conjunctivae normal and no scleral icterus CONJUNCTIVA: Yes conjunctivae normal PUPIL: Yes Equal, round and reactive pupils present Neck/C-Spine: COMMON NORMALS: full ROM, no lymphadenopathy, supple, no meningeal signs, no JVD and Thyroid normal THYROID: Thyroid normal Chest: COMMONS NORMALS: normal inspection of the chest and normal palpation of entire chest wall Resp: COMMON NORMALS: normal respiratory effort, No retractions, No use of accessory muscles and clear to auscultation bilaterally AUSCULTATION: clear to auscultation bilaterally Cardio: COMMON NORMALS: no JVD, regular rhythm, S1 normal heart sound present, S2 normal heart sound present, No gallops present (Cardio), No clicks present (Cardio), No murmurs present (Cardio) and No rub (Cardio); negative for regular rate (Tachycardic) RATE: abnormal rate (Tachycardic) RHYTHM: regular rhythm HEART SOUNDS: S1 normal heart sound present and S2 normal heart sound present GI: COMMON NORMALS: Normal to inspection, nondistended, normoactive bowel sounds present, Soft to palpation, non-tender, No hepatosplenomegaly present and no masses PALPATION: Yes Soft to palpation and Yes No hepatosplenomegaly present : COMMON NORMALS: Yes no CVA tenderness BLADDER/KIDNEY EXAM: Yes no CVA tenderness Back/Pelvis: COMMON NORMALS: no CVA tenderness Neuro: COMMON NORMALS: patient oriented x3 SENSORIUM/ORIENTATION: Yes alert MENINGEAL SIGNS: Yes no meningeal signs Course Vital Signs: Vital signs: Vital Signs Temperature 98.8 F 05/17/23 02:08 Pulse Rate 104 H 05/17/23 08:20 Respiratory Rate 24 H 05/17/23 08:20 Blood Pressure 112/68 05/17/23 08:20 Pulse Oximetry 100 05/17/23 08:20 Oxygen Delivery Me thod Nasal Cannula 05/17/23 07:00 Oxygen Flow Rate 2 05/17/23 07:00 MDM - Fever Medical Decision Making Patient's workup showed patient had mildly elevated white count of 11.53, his procalcitonin was elevated at 3.98, lipase 23, lactic acid 2.2, chest x-ray showed a subpulmonic effusion is not excluded, chest CT showed mild bilateral lower lobe atelectasis right greater than left, abdomen and pelvis CT show a large upper abdominal abscess possibly originating from the pancreas with dimensions approximately 25 x 15 x 14 cm. These results was discussed with the patient who elected to try to go to [facility] due to proximity. [facility] was called and said the last time he was there they could not treat him so they end up sending him up to [place]. [facility] was called and and we are currently waiting from a callback from the hospitalist. Patient was given total bolus of 2 L of normal saline and Zosyn 3.375 g IV. Differential Diagnosis Unlikely abdominal pain, acute appendicitis, calculus of kidney, constipation, diverticulitis, endometriosis, gastroenteritis, pancreatitis or small bowel obstruction Medical Records I reviewed the patient's medical records. Lab Data I reviewed the patient's lab results. 05/17/23 02:23 05/17/23 02:23 Radiology Impressions Chest X-Ray 05/17/23 02:17 IMPRESSION: 1. No elevation of the right hemidiaphragm. A subpulmonic effusion is not excluded. 2. Mild bibasilar atelectasis. Chest CT 05/17/23 03:34 IMPRESSION: Mild bilateral lower lobe atelectasis right greater than left Abdomen/Pelvis CT 05/17/23 03:56 IMPRESSION: 1. Large upper abdominal abscess possibly originating from the pancreas. 2. Diverticulosis. COMMENTS: Consistent with the [employer]'s Incidental Findings Committee white paper (J Am Terry Radiol 2018): Any incidental renal lesion less than 1 cm or classified as too small to characterize, or any incidental cystic renal lesion characterized as simple-appearing, is likely benign. No follow-up imaging is recommended for these lesions per consensus recommendations based on imaging criteria. ADDENDUM: 05/17/23 0459 THIS REPORT CONTAINS FINDINGS THAT MAY BE CRITICAL TO PATIENT CARE. The findings were verbally communicated via telephone conference with Sanchez Mckay at 4:57 AM JR. SYSTEMS ADMINISTRATOR on 05/17/2023. The findings were acknowledged and understood. Laboratory Results WBC 11.53 10^3/uL (3.29-11.43) H 05/17/23 02:23 RBC 3.61 10^6/uL (3.85-5.65) L 05/17/23 02:23 Hgb 10.50 g/dL (11.27-16.99) L 05/17/23 02: Hct 31.6 % (37-53) L 05/17/23 02:23 MCV 87.5 fl (82-101) 05/17/23 02: MCH 29.1 pg (27-33) 05/17/23 02: MCHC 33.2 g/dL (30-55) 05/17/23 02: RDW 14.0 % (12.1-15.1) 05/17/23 02:23 Plt Count 205 10^3/cmm (157-399) 05/17/23 02: MPV 9.8 fL (7.4-10.4) 05/17/23 02: Neut % (Auto) 80.1 % 05/17/23 02: Lymph % (Auto) 5.6 % 05/17/23 02:23 Warren % (Auto) 13.1 % 05/17/23 02:23 Eos % (Auto) 0.3 % 05/17/23 02: Baso % (Auto) 0.4 % 05/17/23 02: Neut # (Auto) 9.24 10^3/uL (1.8-7.7) H 05/17/23 02:23 Lymph # (Auto) 0.6 10^3/uL (0.8-4.8) L 05/17/23 02:23 Warren # (Auto) 1.5 10^3/uL (0.2-0.9) H 05/17/23 02:23 Eos # (Auto) 0.0 10^3/uL (0.0-0.8) 05/17/23 02: Baso # (Auto) 0.1 10^3/uL (0.0-0.1) 05/17/23 02: Nucleated RBC % (auto) 0 % 05/17/23 02: Nucleated RBCs # 0.0 /100WBC 05/17/23 02: PT 16.90 SECONDS (12.1-14.9) H 05/17/23 02:23 INR 1.32 (0.8-1.2) H 05/17/23 02:23 APTT 42.6 SECONDS (23.9-36.7) H 05/17/23 02:23 Sodium 132 mmol/L (136-145) L 05/17/23 02:23 Potassium 4.1 mmol/L (3.5-5.1) 05/17/23 02:23 Chloride 98 mmol/L (98-107) 05/17/23 02:23 Carbon Dioxide 23 mmol/L (22-29) 05/17/23 02:23 Anion Gap 15.1 (5-19) 05/17/23 02:23 BUN 16 mg/dL (8-23) 05/17/23 02:23 Creatinine 1.1 mg/dL (0.7-1.2) 05/17/23 02:23 GFR Calculation 68.1 mL/min (90-130) L 05/17/23 02:23 Glucose 192 mg/dL (65-115) H 05/17/23 02:23 POC Glucose 182 mg/dL (70-110) H 05/17/23 02:30 Calculated Osmolality 280 mOsm/kg (285-295) L 05/17/23 02:23 Lactic Acid 2.2 mmol/L (0.5-2.2) 05/17/23 02:23 Lactic Acid (Sepsis) 2.1 mmol/L (0.5-2.2) 05/17/23 06:51 Calcium 9.6 mg/dL (8.5-10.5) 05/17/23 02:23 Total Bilirubin 1.1 mg/dL (0.15-1.2) 05/17/23 02:23 AST 27 U/L (0-40) 05/17/23 02:23 ALT 42 U/L (0-41) H 05/17/23 02:23 Alkaline Phosphatase 97 U/L (40-130) 05/17/23 02:23 Ammonia 18 umol/L (16-60) 05/17/23 06:51 Total Protein 6.6 g/dL (6.6-8.7) 05/17/23 02:23 Albumin 3.4 g/dL (3.5-5.2) L 05/17/23 02:23 Globulin 3.2 g/dL (1.3-4.6) 05/17/23 02:23 Triglycerides 119 mg/dL (0-150) 05/17/23 02:23 Lipase 23 U/L (13-60) 05/17/23 02:23 Procalcitonin 3.98 ng/mL (0-0.5) H 05/17/23 02:23 Urine Color Yellow (Yellow) 05/17/23 05:38 Urine Appearance Clear (CLEAR) 05/17/23 05:38 Urine pH 5 (5-7) 05/17/23 05:38 Ur Specific [place] 1.005 (1.005-1.030) 05/17/23 05:38 Urine Protein 1+ (Negative) H 05/17/23 05:38 Urine Glucose (UA) Norm (Normal) 05/17/23 05:38 Urine Ketones Negative (Negative) 05/17/23 05:38 Urine Blood Neg (Negative) 05/17/23 05:38 Urine Nitrate Negative (Negative) 05/17/23 05:38 Urine Bilirubin Neg (Negative) 05/17/23 05:38 Urine Urobilinogen Neg mg/dL (Negative) 05/17/23 05:38 Ur Leukocyte Esterase Negative (Negative) 05/17/23 05:38 Urine RBC Rare /hpf (0-2) 05/17/23 05:38 Urine WBC None /hpf (0-5) 05/17/23 05:38 Ur Squamous Epith Cells None /hpf (0-5) 05/17/23 05:38 Amorphous Sediment 1+ /hpf 05/17/23 05:38 Urine Bacteria None /hpf (NONE) 05/17/23 05:38 All radiology interpretation(s) finalized by discharge EKG Data EKG 1: I personally reviewed and interpreted this EKG as follows: EKG interpretation date: 05/17/23 EKG interpretation time: 03:57 Prior EKG tracings: not available for review Discharge Plan Discharge Patient Disposition: Xfer Short-Term Hosp Clinical Impression: Abscess of pancreas Fever Qualifiers: Fever type: unspecified Qualified Code(s): R50.9 - Fever, unspecified Condition: Stable Referrals: Jillian Ramirez MD [Primary Care Provider] - Sign Out Sign Out Data: Patient Sign Out occurred on 05/17/23 at 06:10. Patient's care was discussed, and care was transferred from Sanchez Mckay DO to Gordon Cruz DO. Coding Level of Care Code ED Bench Assembler Electrical for Chg Fwd Documented by User: Gordon Cruz DO 05/17/23 08:34 HPI - Fever General: Chief Complaint: Fever Stated Complaint: fever Time Seen by Provider: 05/17/23 02:05 PFSH ED PFSH: Medical History Alcohol abuse Hypertension Surgical History S/P anal fissurectomy Social History Smoking and tobacco/nicotine status: never used tobacco/nicotine Alcohol intake: current Substance/Drug Use: current Course Vital Signs: Vital signs: Vital Signs Temperature 98.8 F 05/17/23 02:08 Pulse Rate 104 H 05/17/23 08:20 Respiratory Rate 24 H 05/17/23 08:20 Blood Pressure 112/68 05/17/23 08:20 Pulse Oximetry 100 05/17/23 08:20 Oxygen Delivery Me thod Nasal Cannula 05/17/23 07:00 Oxygen Flow Rate 2 05/17/23 07:00 MDM - Fever Medical Decision Making Patient's workup showed patient had mildly elevated white count of 11.53, his procalcitonin was elevated at 3.98, lipase 23, lactic acid 2.2, chest x-ray showed a subpulmonic effusion is not excluded, chest CT showed mild bilateral lower lobe atelectasis right greater than left, abdomen and pelvis CT show a large upper abdominal abscess possibly originating from the pancreas with dimensions approximately 25 x 15 x 14 cm. These results was discussed with the patient who elected to try to go to [facility] due to proximity. [facility] was called and said the last time he was there they could not treat him so they end up sending him up to [place]. [facility] was called and and we are currently waiting from a callback from the hospitalist. Patient was given total bolus of 2 L of normal saline and Zosyn 3.375 g IV. Care assumed from Dr. Mckay at change of shift. Chart reviewed. We have called hospitals in [facility] in [place]. None of these have available beds. [facility] in [place] was willing to accept the patient and put him on a wait list but stated it would likely be days before they would have availability. We continue to call other facilities and were able to get a bed in [facility]. He will be transferred via air VAC to [facility] in [place] for his pancreatic abscess. We do not have interventional radiology gastroenterology here that will be needed to manage his patient's issues. Lab Data 05/17/23 02:23 12 02:23 Radiology Impressions Chest X-Ray 05/17/23 02:17 IMPRESSION: 1. No elevation of the right hemidiaphragm. A subpulmonic effusion is not excluded. 2. Mild bibasilar atelectasis. Chest CT 05/17/23 03:34 IMPRESSION: Mild bilateral lower lobe atelectasis right greater than left Abdomen/Pelvis CT 05/17/23 03:56 IMPRESSION: 1. Large upper abdominal abscess possibly originating from the pancreas. 2. Diverticulosis. COMMENTS: Consistent with the [place] [employer]'s Incidental Findings Committee white paper (J Am Terry Radiol 2018): Any incidental renal lesion less than 1 cm or classified as too small to characterize, or any incidental cystic renal lesion characterized as simple-appearing, is likely benign. No follow-up imaging is recommended for these lesions per consensus recommendations based on imaging criteria. ADDENDUM: 05/17/23 0459 THIS REPORT CONTAINS FINDINGS THAT MAY BE CRITICAL TO PATIENT CARE. The findings were verbally communicated via telephone conference with Sanchez Mckay at 4:57 AM JR. SYSTEMS ADMINISTRATOR on 05/17/2023. The findings were acknowledged and understood. Laboratory Results WBC 11.53 10^3/uL (3.29-11.43) H 05/17/23 02: RBC 3.61 10^6/uL (3.85-5.65) L 05/17/23 02:23 Hgb 10.50 g/dL (11.27-16.99) L 05/17/23 02: Hct 31.6 % (37-53) L 05/17/23 02:23 MCV 87.5 fl (82-101) 05/17/23 02: MCH 29.1 pg (27-33) 05/17/23 02: MCHC 33.2 g/dL (30-55) 05/17/23 02: RDW 14.0 % (12.1-15.1) 05/17/23 02:23 Plt Count 205 10^3/cmm (157-399) 05/17/23 02:23 MPV 9.8 fL (7.4-10.4) 05/17/23 02:23 Neut % (Auto) 80.1 % 05/17/23 02:23 Lymph % (Auto) 5.6 % 05/17/23 02:23 Warren % (Auto) 13.1 % 05/17/23 02:23 Eos % (Auto) 0.3 % 05/17/23 02:23 Baso % (Auto) 0.4 % 05/17/23 02:23 Neut # (Auto) 9.24 10^3/uL (1.8-7.7) H 05/17/23 02:23 Lymph # (Auto) 0.6 10^3/uL (0.8-4.8) L 05/17/23 02:23 Warren # (Auto) 1.5 10^3/uL (0.2-0.9) H 05/17/23 02:23 Eos # (Auto) 0.0 10^3/uL (0.0-0.8) 05/17/23 02:23 Baso # (Auto) 0.1 10^3/uL (0.0-0.1) 05/17/23 02:23 Nucleated RBC % (auto) 0 % 05/17/23 02: Nucleated RBCs # 0.0 /100WBC 05/17/23 02: PT 16.90 SECONDS (12.1-14.9) H 05/17/23 02:23 INR 1.32 (0.8-1.2) H 05/17/23 02:23 APTT 42.6 SECONDS (23.9-36.7) H 05/17/23 02:23 Sodium 132 mmol/L (136-145) L 05/17/23 02:23 Potassium 4.1 mmol/L (3.5-5.1) 05/17/23 02:23 Chloride 98 mmol/L (98-107) 05/17/23 02:23 Carbon Dioxide 23 mmol/L (22-29) 05/17/23 02:23 Anion Gap 15.1 (5-19) 05/17/23 02:23 BUN 16 mg/dL (8-23) 05/17/23 02:23 Creatinine 1.1 mg/dL (0.7-1.2) 05/17/23 02:23 GFR Calculation 68.1 mL/min (90-130) L 05/17/23 02:23 Glucose 192 mg/dL (65-115) H 05/17/23 02:23 POC Glucose 182 mg/dL (70-110) H 05/17/23 02:30 Calculated Osmolality 280 mOsm/kg (285-295) L 05/17/23 02:23 Lactic Acid 2.2 mmol/L (0.5-2.2) 05/17/23 02:23 Lactic Acid (Sepsis) 2.1 mmol/L (0.5-2.2) 05/17/23 06:51 Calcium 9.6 mg/dL (8.5-10.5) 05/17/23 02:23 Total Bilirubin 1.1 mg/dL (0.15-1.2) 05/17/23 02:23 AST 27 U/L (0-40) 05/17/23 02:23 ALT 42 U/L (0-41) H 05/17/23 02:23 Alkaline Phosphatase 97 U/L (40-130) 05/17/23 02:23 Ammonia 18 umol/L (16-60) 05/17/23 06:51 Total Protein 6.6 g/dL (6.6-8.7) 05/17/23 02:23 Albumin 3.4 g/dL (3.5-5.2) L 05/17/23 02:23 Globulin 3.2 g/dL (1.3-4.6) 05/17/23 02:23 Triglycerides 119 mg/dL (0-150) 05/17/23 02:23 Lipase 23 U/L (13-60) 05/17/23 02:23 Procalcitonin 3.98 ng/mL (0-0.5) H 05/17/23 02:23 Urine Color Yellow (Yellow) 05/17/23 05:38 Urine Appearance Clear (CLEAR) 05/17/23 05:38 Urine pH 5 (5-7) 05/17/23 05:38 Ur Specific [place] 1.005 (1.005-1.030) 05/17/23 05:38 Urine Protein 1+ (Negative) H 05/17/23 05:38 Urine Glucose (UA) Norm (Normal) 05/17/23 05:38 Urine Ketones Negative (Negative) 05/17/23 05:38 Urine Blood Neg (Negative) 05/17/23 05:38 Urine Nitrate Negative (Negative) 05/17/23 05:38 Urine Bilirubin Neg (Negative) 05/17/23 05:38 Urine Urobilinogen Neg mg/dL (Negative) 05/17/23 05:38 Ur Leukocyte Esterase Negative (Negative) 05/17/23 05:38 Urine RBC Rare /hpf (0-2) 05/17/23 05:38 Urine WBC None /hpf (0-5) 05/17/23 05:38 Ur Squamous Epith Cells None /hpf (0-5) 05/17/23 05:38 Amorphous Sediment 1+ /hpf 05/17/23 05:38 Urine Bacteria None /hpf (NONE) 05/17/23 05:38 Discharge Plan Discharge Patient Disposition: Xfer Short-Term Hosp Clinical Impression: Abscess of pancreas Fever Qualifiers: Fever type: unspecified Qualified Code(s): R50.9 - Fever, unspecified Condition: Stable Referrals: Jillian Ramirez MD [Primary Care Provider] - Sign Out Sign Out Data: Patient Sign Out occurred on 05/17/23 at 06:10. Patient's care was discussed, and care was transferred from Sanchez Mckay DO to Grodon Cruz DO. Coding Level of Care Code ED Bench Assembler Electrical for Jose Alicia
[2023-05-17 02:48] LABS: Lactic Sepsis W/Reflex 2.2 mmol/L (0.5-2.2)
[2023-05-17 02:49] LABS: Alanine Aminotransferase 42 U/L (0-41); Albumin Level 3.4 g/dL (3.5-5.2); Alkaline Phosphatase 97 U/L (40-130); Anion Gap 15.1 (5-19); Aspartate Amino Transferase 27 U/L (0-40); Blood Urea Nitrogen 16 mg/dL (8-23); Calcium 9.6 mg/dL (8.5-10.5); Carbon Dioxide 23 mmol/L (22-29); Chloride 98 mmol/L (98-107); Globulin 3.2 g/dL (1.3-4.6); Glomerular Filtration Rate 68.1 mL/min (90-130); Glucose 192 mg/dL (65-115); Lipase 23 U/L (13-60); Osmolality Calculated 280 mOsm/kg (285-295); Potassium 4.1 mmol/L (3.5-5.1); Sodium 132 mmol/L (136-145); Total Bilirubin 1.1 mg/dL (0.15-1.2); Total Protein 6.6 g/dL (6.6-8.7)
[2023-05-17] MEDS: sodium chloride 0.9% 1,000 ML 999 ML IV (02:53)
[2023-05-17 02:55] LABS: Procalcitonin 3.98 ng/mL (0-0.5)
--- NOTE | 2023-05-17 03:34 | CTR_ITS ---
PROCEDURE INFORMATION: Exam: CT Chest With Contrast; Diagnostic Exam date and time: 05/17/2023 3:47 AM Age: 63 years old Clinical indication: Fever and shortness of breath; Patient HX: SOB with fever, hypotension, tachycardia, and diaphoresis. ; Additional info: Tachycardia, hypotension, fever, effusion TECHNIQUE: Imaging protocol: Diagnostic computed tomography of the chest with contrast. Radiation optimization: All CT scans at this facility use at least one of these dose optimization techniques: automated exposure control; mA and/or kV adjustment per patient size (includes targeted exams where dose is matched to clinical indication); or iterative reconstruction. Contrast material: OMNI 350; Contrast volume: 100 ml; Contrast route: INTRAVENOUS (IV); REPORTING DATA: Count of CT and Cardiac NM exams in prior 12 months: This patient has received 0 known CTs and 0 known cardiac nuclear medicine studies in the 12 months prior to the current study. COMPARISON: CR (CHEST, ) 05/17/2023 2:21 AM RADIATION DOSE METRICS: Total DLP (mGy-cm): 1611.06 FINDINGS: Lungs: There is mild bilateral lower lobe atelectasis right greater than left. Pleural spaces: Unremarkable. No pneumothorax. No pleural effusion. Heart: Unremarkable. No cardiomegaly. No pericardial effusion. Lymph nodes: Unremarkable. No enlarged lymph nodes. Vasculature: Unremarkable. No aortic aneurysm. Bones/joints: Multiple old left rib fractures are identified. Soft tissues: Unremarkable. CT/CT chest w con* [id number] IMPRESSION: Mild bilateral lower lobe atelectasis right greater than left
[2023-05-17] MEDS: iohexol 350 mg/mL 500 mL Btl (per mL) IV ×2 (03:49→03:58)
--- NOTE | 2023-05-17 03:56 | CTR_ITS ---
PROCEDURE INFORMATION: Exam: CT Abdomen And Pelvis With Contrast Exam date and time: 05/17/2023 3:56 AM Age: 63 years old Clinical indication: Abnormal findings; Abnormal lab test; Prior surgery; Surgery date: 6+ months; Surgery type: Anal fissurectomy; Patient HX: Fever with hypotension and elevated wbc. ; Additional info: Fever. Hypotension. TECHNIQUE: Imaging protocol: Computed tomography of the abdomen and pelvis with contrast. Radiation optimization: All CT scans at this facility use at least one of these dose optimization techniques: automated exposure control; mA and/or kV adjustment per patient size (includes targeted exams where dose is matched to clinical indication); or iterative reconstruction. Contrast material: OMNI 350; Contrast volume: 60 ml; Contrast route: INTRAVENOUS (IV); REPORTING DATA: Count of CT and Cardiac NM exams in prior 12 months: This patient has received 0 known CTs and 0 known cardiac nuclear medicine studies in the 12 months prior to the current study. COMPARISON: CT chest w con* [id number] 05/17/2023 3:47 AM RADIATION DOSE METRICS: Total DLP (mGy-cm): 1550.49 FINDINGS: Liver: Normal. No mass. Gallbladder and bile ducts: Normal. No calcified stones. No ductal dilation. Pancreas: The pancreas is not visualized Spleen: Normal. No splenomegaly. Adrenal glands: Normal. No mass. Kidneys and ureters: Multiple bilateral renal cysts are identified. Stomach and bowel: There is no bowel obstruction. There is diverticulosis without evidence of diverticulitis. Appendix: No evidence of appendicitis. Intraperitoneal space: There is a large collection with air in fluid centered in the upper abdomen measuring 24 x 14 x 15 cm. Adjacent inflammatory changes are identified and there is obscuration of the pancreas. There is trace ascites. Vasculature: There is mild atherosclerotic disease. There is no abdominal aortic aneurysm. Lymph nodes: Unremarkable. No enlarged lymph nodes. Urinary bladder: Unremarkable as visualized. Reproductive: Unremarkable as visualized. Bones/joints: Multiple old left rib fractures are identified. Soft tissues: Unremarkable. CT/CT abdomen pelvis w con* [id number] IMPRESSION: 1. Large upper abdominal abscess possibly originating from the pancreas. 2. Diverticulosis. COMMENTS: Consistent with the [place] [employer]'s Incidental Findings Committee white paper (J Am Terry Radiol 2018): Any incidental renal lesion less than 1 cm or classified as too small to characterize, or any incidental cystic renal lesion characterized as simple-appearing, is likely benign. No follow-up imaging is recommended for these lesions per consensus recommendations based on imaging criteria.
[2023-05-17 04:15] LABS: Reflex Lactate Order REFLEX LACTIC ORDERD
[2023-05-17] MEDS: piperacillin-tazobactam 3.375 GM in sodium chloride 0.9% (plus) 50 ML IV (05:27)
[2023-05-17 06:00] LABS: Add Urine Microscopic? YES; Bilirubin Urine Neg (Negative); Blood Urine Neg (Negative); Glucose Urine UA Norm (Normal); Ketones Urine Negative (Negative); Leukocyte Esterase Urine Negative (Negative); Nitrate Urine Negative (Negative); Protein Urine 1+ (Negative); Specific Gravity, Urine 1.005 (1.005-1.030); Urine Appearance Clear (CLEAR); Urine Color Yellow (Yellow); Urobilinogen Urine Neg (Negative); pH Urine 5 (5-7)
[2023-05-17 06:01] LABS: Add Urine Culture? No; Amorphous Sediment Urine 1+ /hpf; RBC Urine RARE /hpf (0-2)
[2023-05-17 07:04] LABS: Triglycerides 119 mg/dL (0-150)
[2023-05-17 07:28] LABS: Lactic Acid level (Lactate) 2.1 mmol/L (0.5-2.2)
[2023-05-17 07:29] LABS: INR 1.32 (0.8-1.2)
[2023-05-17 07:30] LABS: Partial Thromboplastin Time 42.6 SECONDS (23.9-36.7)
[2023-05-17 07:31] LABS: Ammonia 18 umol/L (16-60)
--- NOTE | 2023-05-17 08:19 | PC.PHAR ---
medication entered are from what ext med history shows has been filled recently and what was already entered on a previously entered med list
[2023-05-17] MEDS: ondansetron 2 mg/ML SDV 2 mL 4 MG IVP (08:35)
== END 2023-05-17 09:02 | disposition short-term general hospital (02) ==
PROVIDERS: Emergency Medicine; Emergency Provider Family Medicine; PCP Family Medicine
DX: K85.90 Acute pancreatitis without necrosis or infection, unspecified (principal); R00.0 Tachycardia, unspecified; R50.9 Fever, unspecified; J98.11 Atelectasis
CPT/HCPCS: 36415; 36416; 51702; 71045; 71260; 74177; 80053; 81001; 82140; 82962; 83605; 83690; 84145; 84478; 85025; 85610; 85730; 87040; 93005; 96365; 96366; 96375; 99285; J2405; J2543; J7030; Q9967

== ENCOUNTER 2023-07-07 20:23 | Emergency (ER) | payer SELFPAY ==
[2023-07-07 20:26] VITALS: BP 145/87; PULSE 123; RESP 16; TEMP 36.9; O2SAT 95
[2023-07-07 21:15] LABS: Basophils # 0.1 10^3/uL (0.0-0.1); Basophils % 0.4 %; Eosinophils # 0.2 10^3/uL (0.0-0.8); Hematocrit 32.7 % (37-53); Lymphocytes # 1.5 10^3/uL (0.8-4.8); Lymphocytes % 8.4 %; Mean Corpuscular HGB Conc 30.6 g/dL (30-55); Mean Corpuscular Hemoglobin 25.7 pg (27-33); Mean Corpuscular Volume 84.1 fl (82-101); Mean Platelet Volume 9.2 fL (7.4-10.4); Monocytes # 2.2 10^3/uL (0.2-0.9); Monocytes % 12.4 %; Neutrophils # 13.58 10^3/uL (1.8-7.7); Neutrophils % 77.3 %; Nucleated Red Blood Cells % 0 %; Platelet Count 369 10^3/cmm (157-399); Red Blood Count 3.89 10^6/uL (3.85-5.65); Red Cell Distribution Width 15.2 % (12.1-15.1); White Blood Count 17.57 10^3/uL (3.29-11.43)
--- NOTE | 2023-07-07 21:17 | ECG_ITS ---
[facility] Test Date: 2023-07-07 Pat Name: Nolan Toribio Department: Room: Gender: Male Java Designer: : 1960 Requested By: Verónica Rodas Order Number: [id number] Steph MD: Hector Hagan M.D. Measurements Intervals [place] Rate: 105 P: 58 MI: 154 QRS: 37 QRSD: 87 T: 52 QT: 326 QTc: 432 Interpretive Statements SINUS TACHYCARDIA Compared to ECG 05/17/2023 02:19:48 Myocardial infarct finding no longer present Electronically Signed On 07-08-2023 18:31:59 LINUX NETWORK ADMINISTRATOR by Hector Hagan M.D. [email or web address]
[2023-07-07] MEDS: metoclopramide 5 mg/mL SDV 2 mL 10 MG IVP (21:25)
[2023-07-07] MEDS: sodium chloride 0.9% 1,000 ML 999 ML IV (21:25)
--- NOTE | 2023-07-07 21:26 | ED_ITS ---
Documented by User: DONAVON Campbell 07/08/23 00:44 HPI - Abdominal Pain 2 General: Chief Complaint: Abdominal Pain Stated Complaint: Fever\SOB\Pain In Chest Time Seen by Provider: 07/07/23 21:08 Source: patient and family Mode of arrival: wheelchair Limitations: no limitations History of Present Illness: Patient presents emergency department today accompanied by his for evaluation and treatment of sharp, retrosternal chest pains and complaints of left-sided neck discomfort starting approximately 330 this morning. Patient reports intense nausea during this time but no vomiting. He admits his pain has significantly improved from this morning but is still having episodes of discomfort now felt in the epigastric region. Patient has a significant past medical history of acute pancreatitis. Chart review shows he had stents placed and currently takes insulin due to blood sugar issues from his pancreatitis. 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 He denies fevers. No upper respiratory symptoms to report. Further chart review shows the patient was seen here in the emergency department back in May for tachycardia, fever, and epigastric/chest pains. Patient had previously been seen for pancreatitis and pyelonephritis and after several transfers, had wound up at [place] for his pancreatitis. When patient was seen here in May for the similar symptoms, patient was found to have an abscess on CT. Patient's lipase was normal at that time but had elevated lactic and procalcitonin levels. Patient wound up being airlifted to [place] for his pancreatic abscess. Patient had stent placement at that time for the pancreatic abscess. Review of Systems 2 General: Reports: 10 or more systems reviewed and unremarkable except in HPI and below PFSH ED 2 PFSH: Medical History Alcohol abuse Hypertension Surgical History S/P anal fissurectomy Social History Smoking and tobacco/nicotine status: never used tobacco/nicotine Alcohol intake: current Substance/Drug Use: current Physical Exam 2 Const: COMMON NORMALS: no acute distress, patient oriented x3 and alert O THER: Ill-appearing but social. Answers his own history. HENMT: COMMON NORMALS: normocephalic, atraumatic, hearing grossly normal bilaterally and moist oral mucous membranes HEAD & SCALP: normocephalic and atraumatic Eye: COMMON NORMALS: Equal, round and reactive pupils present, EOMs intact bilaterally and conjunctivae normal CONJUNCTIVA: Yes conjunctivae normal P UPIL: Yes Equal, round and reactive pupils present Neck/C-Spine: COMMON NORMALS: full ROM and no JVD Lymph: LYMPHATIC: no lymphadenopathy noted Resp: COMMON NORMALS: normal respiratory effort, No retractions, No use of accessory muscles and clear to auscultation bilaterally AUSCULTATION: clear to auscultation bilaterally Cardio: COMMON NORMALS: no JVD and regular rhythm RHYTHM: regular rhythm OTHER: Tachycardia GI: OTHER: Epigastric tenderness : COMMON NORMALS: Yes no CVA tenderness BLADDER/KIDNEY EXAM: Yes no CVA tenderness Back/Pelvis: COMMON NORMALS: no CVA tenderness, no thoracic nor lumbar tenderness and thoraco-lumbar ROM normal Extremity: COMMON NORMALS: normal to inspection, full ROM and capillary refill normal Neuro: COMMON NORMALS: patient oriented x3 SENSORIUM/ORIENTATION: Yes alert Psych: COMMON NORMALS: mental status grossly normal, Normal thought process present, cooperative, normal affect and activity/motor behavior normal T HOUGHT PROCESS: Normal thought process present Skin: COMMON NORMALS: no rashes or lesions noted and no wounds GENERAL SKIN EXAM: no rashes or lesions noted Course 2 Vital Signs: Vital signs: Vital Signs Temperature 98.5 F 07/07/23 20:26 Pulse Rate 102 H 07/08/23 10:35 Respiratory Rate 16 07/08/23 08:36 Blood Pressure 108/51 07/08/23 10:35 Pulse Oximetry 93 07/08/23 10:35 Oxygen Delivery Me thod Room Air 07/08/23 08:30 MDM - Abdominal Pain Medical Decision Making Patient presents emergency department today for evaluation and treatment of epigastric and retrosternal pain. Based on the patient's past medical history we will evaluate for concerns of pancreatitis but, with retrosternal pain we will also do a cardiac evaluation. So far, cardiac evaluation reveals no acute concerns though patient is tachycardic. He has not taken his metoprolol or carvedilol per his report. Patient does have an elevated white blood cell count elevated inflammatory markers. Chest x-ray revealed no signs of any underlying pulmonary concerns and no signs of acute cardiomegaly. Given the patient's symptoms and history we did proceed on with a chest abdomen pelvis CT which was concerning for acute pancreatitis and gastritis but, I was notified by Gildardo rosen that there appeared to be occlusion of the femoral veins. It was recommended that the patient have a DVT rule out with ultrasound of the lower extremities. I did discuss all this with the patient who is willing to proceed. As Dr. Mckay has seen this patient in the past, have been discussing the case with him. Transfer of care to Dr. Mckay at 0100 for continued monitoring and intervention as needed. Differential Diagnosis Likely abdominal pain and pancreatitis; Unlikely acute appendicitis, calculus of kidney, diverticulitis, endometriosis, gastroenteritis or small bowel obstruction Lab Data 07/07/23 21:04 07/07/23 21:04 Labs/Radiology: Radiology Impressions Chest X-Ray 07/07/23 21:49 IMPRESSION: No acute findings. Chest/Abdomen/Pelvis CT 07/07/23 22:25 IMPRESSION: 1. Small bilateral pleural effusions. 2. Bibasilar atelectasis versus infiltrate. 3. Coronary artery atherosclerotic calcifications. 4. Scattered subcentimeter short axis nonspecific mediastinal lymph nodes. IMPRESSION: 1. 13 cm fluid collection in the region of the pancreas containing air with a drainage catheter seen extending of the fluid collection into the stomach, overall fluid collection appears somewhat decreased in size compared to prior exam when it measured up to 22 cm. Finding likely reflects a pancreatic pseudocyst/abscess or perhaps a necrotic malignancy. Edema seen about the pancreas suggestive of active pancreatitis. Additionally diffuse gastric wall thickening is seen which may reflect associated gastritis. 2. Bilateral renal cysts, negative for follow-up advised. 3. Diverticulosis without diverticulitis. 4. Equivocal filling defects in the common femoral veins bilaterally, consider correlation with duplex venous ultrasound of lower extremities if concern for deep venous thrombosis exists. 5. Scattered subcentimeter retroperitoneal lymph nodes. 6. Urinary bladder wall thickening likely due to nondistention, please correlate for colitis. COMMENTS: Consistent with the [employer]'s Incidental Findings Committee white paper (J Am Terry Radiol 2018): Any incidental renal lesion less than 1 cm or classified as too small to characterize, or any incidental cystic renal lesion characterized as simple-appearing, is likely benign. No follow-up imaging is recommended for these lesions per consensus recommendations based on imaging criteria. ADDENDUM: 07/07/23 8790 THIS REPORT CONTAINS FINDINGS THAT MAY BE CRITICAL TO PATIENT CARE. The findings were verbally communicated via telephone conference with ALYSSA LEIGH at 10:59 PM FLIGHT OPERATION COORDINATOR on 07/07/2023. The findings were acknowledged and understood. Venous Duplex 07/07/23 23:19 IMPRESSION: No evidence of deep vein thrombosis. Laboratory Results WBC 17.57 10^3/uL (3.29-11.43) H 07/07/23 21:04 RBC 3.89 10^6/uL (3.85-5.65) 07/07/23 21:04 Hgb 10.00 g/dL (11.27-16.99) L 07/07/23 21:04 Hct 32.7 % (37-53) L 07/07/23 21:04 MCV 84.1 fl (82-101) 07/07/23 21:04 MCH 25.7 pg (27-33) L 07/07/23 21:04 MCHC 30.6 g/dL (30-55) 07/07/23 21:04 RDW 15.2 % (12.1-15.1) H 07/07/23 21:04 Plt Count 369 10^3/cmm (157-399) 07/07/23 21:04 MPV 9.2 fL (7.4-10.4) 07/07/23 21:04 Neut % (Auto) 77.3 % 07/07/23 21:04 Lymph % (Auto) 8.4 % 07/07/23 21:04 [place] % (Auto) 12.4 % 07/07/23 21:04 Eos % (Auto) 1.0 % 07/07/23 21:04 Baso % (Auto) 0.4 % 07/07/23 21:04 Neut # (Auto) 13.58 10^3/uL (1.8-7.7) H 07/07/23 21:04 Lymph # (Auto) 1.5 10^3/uL (0.8-4.8) 07/07/23 21:04 [place] # (Auto) 2.2 10^3/uL (0.2-0.9) H 07/07/23 21:04 Eos # (Auto) 0.2 10^3/uL (0.0-0.8) 07/07/23 21:04 Baso # (Auto) 0.1 10^3/uL (0.0-0.1) 07/07/23 21:04 Nucleated RBC % (auto) 0 % 07/07/23 21:04 Nucleated RBCs # 0.0 /100WBC 07/07/23 21:04 ESR 80 mm/hr (0-10) H 07/07/23 21:04 Sodium 132 mmol/L (136-145) L 07/07/23 21:04 Potassium 4.1 mmol/L (3.5-5.1) 07/07/23 21:04 Chloride 95 mmol/L (98-107) L 07/07/23 21:04 Carbon Dioxide 23 mmol/L (22-29) 07/07/23 21:04 Anion Gap 18.1 (5-19) 07/07/23 21:04 BUN 13 mg/dL (8-23) 07/07/23 21:04 Creatinine 0.7 mg/dL (0.7-1.2) 07/07/23 21:04 GFR Calculation 114.6 mL/min (90-130) 07/07/23 21:04 Glucose 148 mg/dL (65-115) H 07/07/23 21:04 POC Glucose 119 mg/dL (70-110) H 07/08/23 09:29 Calculated Osmolality 277 mOsm/kg (285-295) L 07/07/23 21:04 Lactic Acid 0.9 mmol/L (0.5-2.2) 07/07/23 21:04 Calcium 10.2 mg/dL (8.5-10.5) 07/07/23 21:04 Total Bilirubin 0.7 mg/dL (0.15-1.2) 07/07/23 21:04 AST 12 U/L (0-40) 07/07/23 21:04 ALT 13 U/L (0-41) 07/07/23 21:04 Alkaline Phosphatase 99 U/L (40-130) 07/07/23 21:04 Troponin T Baseline 11 ng/L (0-15) 07/07/23 21:04 C-Reactive Protein 172.9 mg/L (0.0-4.9) H 07/07/23 21:04 Total Protein 7.5 g/dL (6.6-8.7) 07/07/23 21:04 Albumin 3.5 g/dL (3.5-5.2) 07/07/23 21:04 Globulin 4.0 g/dL (1.3-4.6) 07/07/23 21:04 Lipase 31 U/L (13-60) 07/07/23 21:04 Procalcitonin 0.18 ng/mL (0-0.5) 07/07/23 21:04 Urine Color Yellow (Yellow) 07/07/23 22:20 Urine Appearance Clear (CLEAR) 07/07/23 22:20 Urine pH 5 (5-7) 07/07/23 22:20 Ur Specific [place] 1.020 (1.005-1.030) 07/07/23 22:20 Urine Protein Trace (Negative) 07/07/23 22:20 Urine Glucose (UA) Norm (Normal) 07/07/23 22:20 Urine Ketones 1+ (Negative) H 07/07/23 22:20 Urine Blood Neg (Negative) 07/07/23 22:20 Urine Nitrate Negative (Negative) 07/07/23 22:20 Urine Bilirubin Neg (Negative) 07/07/23 22:20 Urine Urobilinogen Neg mg/dL (Negative) 07/07/23 22:20 Ur Leukocyte Esterase Negative (Negative) 07/07/23 22:20 Urine RBC None /hpf (0-2) 07/07/23 22:20 Urine WBC None /hpf (0-5) 07/07/23 22:20 Ur Squamous Epith Cells None /hpf (0-5) 07/07/23 22:20 Amorphous Sediment 1+ /hpf 07/07/23 22:20 Urine Bacteria Trace /hpf (NONE) 07/07/23 22:20 Urine Mucus 2+ /hpf 07/07/23 22:20 All radiology interpretation(s) finalized by discharge Discharge Plan Discharge Patient Disposition: Home Clinical Impression: Abscess of pancreas, Abdominal pain Condition: Stable Prescriptions: New levofloxacin 750 mg tablet 750 mg PO DAILY 14 Days Qty: 14 0RF metronidazole 500 mg tablet 500 mg PO Q8H 14 Days Qty: 42 0RF hydrocodone-acetaminophen 5-325 mg tablet 1 tab PO Q6H PRN (Reason: pain) Qty: 30 0RF ondansetron HCl 4 mg tablet 4 mg PO Q6H PRN (Reason: nausea and vomiting) Qty: 30 0RF No Action aspirin 81 mg tablet,delayed release (DR/EC) 81 mg PO DAILY docusate sodium 100 mg capsule 100 mg PO BID PRN (Reason: Constipation) Creon 24,000-76,000 -120,000 unit capsule,delayed release(DR/EC) 2 cap PO TID multivitamin Tablet 1 tab PO DAILY digestive enzymes Tablet 1 tab PO TID Lantus U-100 Insulin 100 unit/mL solution 15 unit SUBCUT BEDTIME zinc acetate 50 mg (zinc) Capsule 50 mg PO DAILY Fish Oil Concentrate 1,000 mg Capsule 1,000 mg PO DAILY Vitamin B-12 1,000 mcg Tablet 1,000 mcg PO DAILY Vitamin C 500 mg Tablet 500 mg PO DAILY Vitamin D3 25 mcg (1,000 unit) Capsule 25 mcg PO DAILY insulin aspart U-100 100 unit/mL (3 mL) insulin pen 5 unit SUBCUT TID PRN (Reason: blood sugar) atorvastatin 40 mg tablet 40 mg PO BEDTIME Discharge Orders: Discharge ED (Routine); Ordered 07/08/23 Ordered By: Shamar Villagomez Referrals: Bob Smith MD [Primary Care Provider] - Discharge Diet: Low Fat Discharge Activity: Resume usual activity Patient Instructions: Abdominal Pain (ED), Opioid Safety, Pain Management Activity Restrictions/Additional Instructions: Activity Restrictions/Additional Instructions: Thank you for choosing [facility] for your healthcare needs today. Please realize that you were seen in the Emergency Department and that we are providing you with an emergency medical screening exam and this may not be a complete and all inclusive of all the testing and or medical work-up that you may need to determine your ailment or severity of your illness. It is very important that you follow-up as instructed with your Primary care provider or Specialist for additional evaluation and to discuss your medical treatment plan. You may return to the Emergency Department should you have concerns or if your condition changes or worsens in any way. Coding Level of Care Code ED Dairy Farm Operator for Chg Rosalinod Documented by User: Sanchez Mckay DO 07/08/23 05:51 HPI - Abdominal Pain 2 General: Chief Complaint: Abdominal Pain Stated Complaint: Fever\SOB\Pain In Chest Time Seen by Provider: 07/07/23 21:08 [facility] ED 2 PFSH: Medical History Alcohol abuse Hypertension Surgical History S/P anal fissurectomy Social History Smoking and tobacco/nicotine status: never used tobacco/nicotine Alcohol intake: current Substance/Drug Use: current Course 2 Vital Signs: Vital signs: Vital Signs Temperature 98.5 F 07/07/23 20:26 Pulse Rate 102 H 07/08/23 10:35 Respiratory Rate 16 07/08/23 08:36 Blood Pressure 108/51 07/08/23 10:35 Pulse Oximetry 93 07/08/23 10:35 Oxygen Delivery Me thod Room Air 07/08/23 08:30 MDM - Abdominal Pain Medical Decision Making Patient presents emergency department today for evaluation and treatment of epigastric and retrosternal pain. Based on the patient's past medical history we will evaluate for concerns of pancreatitis but, with retrosternal pain we will also do a cardiac evaluation. So far, cardiac evaluation reveals no acute concerns though patient is tachycardic. He has not taken his metoprolol or carvedilol per his report. Patient does have an elevated white blood cell count elevated inflammatory markers. Chest x-ray revealed no signs of any underlying pulmonary concerns and no signs of acute cardiomegaly. Given the patient's symptoms and history we did proceed on with a chest abdomen pelvis CT which was concerning for acute pancreatitis and gastritis but, I was notified by Gildardo rosen that there appeared to be occlusion of the femoral veins. It was recommended that the patient have a DVT rule out with ultrasound of the lower extremities. I did discuss all this with the patient who is willing to proceed. As Dr. Mckay has seen this patient in the past, have been discussing the case with him. Transfer of care to Dr. Mckay at 0100 for continued monitoring and intervention as needed. Ultrasound was negative. Case was discussed with Dr. Hung suggest he goes to a back to a higher level care facility that has GI, IR, pancreatic surgeons, as we are not able to fully meet his needs. Declined by [facility], call made to [facility]' they will talk to their surgeon and GI and call us back. . [facility] call us back and declined due to not having any beds. Lab Data 07/07/23 21:04 07/07/23 21:04 Labs/Radiology: Radiology Impressions Chest X-Ray 07/07/23 21:49 IMPRESSION: No acute findings. Chest/Abdomen/Pelvis CT 07/07/23 22:25 IMPRESSION: 1. Small bilateral pleural effusions. 2. Bibasilar atelectasis versus infiltrate. 3. Coronary artery atherosclerotic calcifications. 4. Scattered subcentimeter short axis nonspecific mediastinal lymph nodes. IMPRESSION: 1. 13 cm fluid collection in the region of the pancreas containing air with a drainage catheter seen extending of the fluid collection into the stomach, overall fluid collection appears somewhat decreased in size compared to prior exam when it measured up to 22 cm. Finding likely reflects a pancreatic pseudocyst/abscess or perhaps a necrotic malignancy. Edema seen about the pancreas suggestive of active pancreatitis. Additionally diffuse gastric wall thickening is seen which may reflect associated gastritis. 2. Bilateral renal cysts, negative for follow-up advised. 3. Diverticulosis without diverticulitis. 4. Equivocal filling defects in the common femoral veins bilaterally, consider correlation with duplex venous ultrasound of lower extremities if concern for deep venous thrombosis exists. 5. Scattered subcentimeter retroperitoneal lymph nodes. 6. Urinary bladder wall thickening likely due to nondistention, please correlate for colitis. COMMENTS: Consistent with the [employer]'s Incidental Findings Committee white paper (J Am Terry Radiol 2018): Any incidental renal lesion less than 1 cm or classified as too small to characterize, or any incidental cystic renal lesion characterized as simple-appearing, is likely benign. No follow-up imaging is recommended for these lesions per consensus recommendations based on imaging criteria. ADDENDUM: 07/07/23 2300 THIS REPORT CONTAINS FINDINGS THAT MAY BE CRITICAL TO PATIENT CARE. The findings were verbally communicated via telephone conference with ALYSSA LEIGH at 10:59 PM FLIGHT OPERATION COORDINATOR on 07/07/2023. The findings were acknowledged and understood. Venous Duplex 07/07/23 23:19 IMPRESSION: No evidence of deep vein thrombosis. Laboratory Results WBC 17.57 10^3/uL (3.29-11.43) H 07/07/23 21:04 RBC 3.89 10^6/uL (3.85-5.65) 07/07/23 21:04 Hgb 10.00 g/dL (11.27-16.99) L 07/07/23 21:04 Hct 32.7 % (37-53) L 07/07/23 21:04 MCV 84.1 fl (82-101) 07/07/23 21:04 MCH 25.7 pg (27-33) L 07/07/23 21:04 MCHC 30.6 g/dL (30-55) 07/07/23 21:04 RDW 15.2 % (12.1-15.1) H 07/07/23 21:04 Plt Count 369 10^3/cmm (157-399) 07/07/23 21:04 MPV 9.2 fL (7.4-10.4) 07/07/23 21: Neut % (Auto) 77.3 % 07/07/23 21: Lymph % (Auto) 8.4 % 07/07/23 21: [place] % (Auto) 12.4 % 07/07/23 21: Eos % (Auto) 1.0 % 07/07/23 21:04 Baso % (Auto) 0.4 % 07/07/23 21:04 Neut # (Auto) 13.58 10^3/uL (1.8-7.7) H 07/07/23 21:04 Lymph # (Auto) 1.5 10^3/uL (0.8-4.8) 07/07/23 21:04 [place] # (Auto) 2.2 10^3/uL (0.2-0.9) H 07/07/23 21:04 Eos # (Auto) 0.2 10^3/uL (0.0-0.8) 07/07/23 21:04 Baso # (Auto) 0.1 10^3/uL (0.0-0.1) 07/07/23 21:04 Nucleated RBC % (auto) 0 % 07/07/23 21:04 Nucleated RBCs # 0.0 /100WBC 07/07/23 21:04 ESR 80 mm/hr (0-10) H 07/07/23 21:04 Sodium 132 mmol/L (136-145) L 07/07/23 21:04 Potassium 4.1 mmol/L (3.5-5.1) 07/07/23 21:04 Chloride 95 mmol/L (98-107) L 07/07/23 21:04 Carbon Dioxide 23 mmol/L (22-29) 07/07/23 21:04 Anion Gap 18.1 (5-19) 07/07/23 21:04 BUN 13 mg/dL (8-23) 07/07/23 21:04 Creatinine 0.7 mg/dL (0.7-1.2) 07/07/23 21:04 GFR Calculation 114.6 mL/min (90-130) 07/07/23 21:04 Glucose 148 mg/dL (65-115) H 07/07/23 21:04 POC Glucose 119 mg/dL (70-110) H 07/08/23 09:29 Calculated Osmolality 277 mOsm/kg (285-295) L 07/07/23 21:04 Lactic Acid 0.9 mmol/L (0.5-2.2) 07/07/23 21:04 Calcium 10.2 mg/dL (8.5-10.5) 07/07/23 21:04 Total Bilirubin 0.7 mg/dL (0.15-1.2) 07/07/23 21:04 AST 12 U/L (0-40) 07/07/23 21:04 ALT 13 U/L (0-41) 07/07/23 21:04 Alkaline Phosphatase 99 U/L (40-130) 07/07/23 21:04 Troponin T Baseline 11 ng/L (0-15) 07/07/23 21:04 C-Reactive Protein 172.9 mg/L (0.0-4.9) H 07/07/23 21:04 Total Protein 7.5 g/dL (6.6-8.7) 07/07/23 21:04 Albumin 3.5 g/dL (3.5-5.2) 07/07/23 21:04 Globulin 4.0 g/dL (1.3-4.6) 07/07/23 21:04 Lipase 31 U/L (13-60) 07/07/23 21:04 Procalcitonin 0.18 ng/mL (0-0.5) 07/07/23 21:04 Urine Color Yellow (Yellow) 07/07/23 22:20 Urine Appearance Clear (CLEAR) 07/07/23 22:20 Urine pH 5 (5-7) 07/07/23 22:20 Ur Specific [place] 1.020 (1.005-1.030) 07/07/23 22:20 Urine Protein Trace (Negative) 07/07/23 22:20 Urine Glucose (UA) Norm (Normal) 07/07/23 22:20 Urine Ketones 1+ (Negative) H 07/07/23 22:20 Urine Blood Neg (Negative) 07/07/23 22:20 Urine Nitrate Negative (Negative) 07/07/23 22:20 Urine Bilirubin Neg (Negative) 07/07/23 22:20 Urine Urobilinogen Neg mg/dL (Negative) 07/07/23 22:20 Ur Leukocyte Esterase Negative (Negative) 07/07/23 22:20 Urine RBC None /hpf (0-2) 07/07/23 22:20 Urine WBC None /hpf (0-5) 07/07/23 22:20 Ur Squamous Epith Cells None /hpf (0-5) 07/07/23 22:20 Amorphous Sediment 1+ /hpf 07/07/23 22:20 Urine Bacteria Trace /hpf (NONE) 07/07/23 22:20 Urine Mucus 2+ /hpf 07/07/23 22:20 Discharge Plan Discharge Patient Disposition: Home Clinical Impression: Abscess of pancreas, Abdominal pain Condition: Stable Prescriptions: New levofloxacin 750 mg tablet 750 mg PO DAILY 14 Days Qty: 14 0RF metronidazole 500 mg tablet 500 mg PO Q8H 14 Days Qty: 42 0RF hydrocodone-acetaminophen 5-325 mg tablet 1 tab PO Q6H PRN (Reason: pain) Qty: 30 0RF ondansetron HCl 4 mg tablet 4 mg PO Q6H PRN (Reason: nausea and vomiting) Qty: 30 0RF No Action aspirin 81 mg tablet,delayed release (DR/EC) 81 mg PO DAILY docusate sodium 100 mg capsule 100 mg PO BID PRN (Reason: Constipation) Creon 24,000-76,000 -120,000 unit capsule,delayed release(DR/EC) 2 cap PO TID multivitamin Tablet 1 tab PO DAILY digestive enzymes Tablet 1 tab PO TID Lantus U-100 Insulin 100 unit/mL solution 15 unit SUBCUT BEDTIME zinc acetate 50 mg (zinc) Capsule 50 mg PO DAILY Fish Oil Concentrate 1,000 mg Capsule 1,000 mg PO DAILY Vitamin B-12 1,000 mcg Tablet 1,000 mcg PO DAILY Vitamin C 500 mg Tablet 500 mg PO DAILY Vitamin D3 25 mcg (1,000 unit) Capsule 25 mcg PO DAILY insulin aspart U-100 100 unit/mL (3 mL) insulin pen 5 unit SUBCUT TID PRN (Reason: blood sugar) atorvastatin 40 mg tablet 40 mg PO BEDTIME Discharge Orders: Discharge ED (Routine); Ordered 07/08/23 Ordered By: Shamar Villagomez Referrals: Bob Smith MD [Primary Care Provider] - Discharge Diet: Low Fat Discharge Activity: Resume usual activity Patient Instructions: Abdominal Pain (ED), Opioid Safety, Pain Management Activity Restrictions/Additional Instructions: Activity Restrictions/Additional Instructions: Thank you for choosing [facility] for your healthcare needs today. Please realize that you were seen in the Emergency Department and that we are providing you with an emergency medical screening exam and this may not be a complete and all inclusive of all the testing and or medical work-up that you may need to determine your ailment or severity of your illness. It is very important that you follow-up as instructed with your Primary care provider or Specialist for additional evaluation and to discuss your medical treatment plan. You may return to the Emergency Department should you have concerns or if your condition changes or worsens in any way. Coding Level of Care Code ED Dairy Farm Operator for Chg Rosalin[facility] Documented by User: Shamar Villagomez MD 07/08/23 10:58 HPI - Abdominal Pain 2 General: Chief Complaint: Abdominal Pain Stated Complaint: Fever\SOB\Pain In Chest Time Seen by Provider: 07/07/23 21:08 [facility] ED 2 [facility]: Medical History Alcohol abuse Hypertension Surgical History S/P anal fissurectomy Social History Smoking and tobacco/nicotine status: never used tobacco/nicotine Alcohol intake: current Substance/Drug Use: current Course 2 ED course: At the patient's request I did contact the on-call physician [facility] who is a partner of the physician Dr. Padilla that initially took care of the patient placing the pancreatic drain and pancreatic stents. I discussed the laboratory findings as well as the radiographic findings with the on-call physician Dr. Rodarte and he recommended and stated that this was normal progression of improvement and that the patient did not need to be transferred and that the patient could resume antibiotics as well as pain medication for pain control and follow-up as previously scheduled. I did advise the patient of this information as that is what they were requesting. I did advise that if anything changes or worsens to immediately return to the emergency department for additional evaluation treatment and care. Vital Signs: Vital signs: Vital Signs Temperature 98.5 F 07/07/23 20:26 Pulse Rate 102 H 07/08/23 10:35 Respiratory Rate 16 07/08/23 08:36 Blood Pressure 108/51 07/08/23 10:35 Pulse Oximetry 93 07/08/23 10:35 Oxygen Delivery Me thod Room Air 07/08/23 08:30 MDM - Abdominal Pain Medical Decision Making Patient presents emergency department today for evaluation and treatment of epigastric and retrosternal pain. Based on the patient's past medical history we will evaluate for concerns of pancreatitis but, with retrosternal pain we will also do a cardiac evaluation. So far, cardiac evaluation reveals no acute concerns though patient is tachycardic. He has not taken his metoprolol or carvedilol per his report. Patient does have an elevated white blood cell count elevated inflammatory markers. Chest x-ray revealed no signs of any underlying pulmonary concerns and no signs of acute cardiomegaly. Given the patient's symptoms and history we did proceed on with a chest abdomen pelvis CT which was concerning for acute pancreatitis and gastritis but, I was notified by Gildardo rosen that there appeared to be occlusion of the femoral veins. It was recommended that the patient have a DVT rule out with ultrasound of the lower extremities. I did discuss all this with the patient who is willing to proceed. As Dr. Mckay has seen this patient in the past, have been discussing the case with him. Transfer of care to Dr. Mckay at 0100 for continued monitoring and intervention as needed. Ultrasound was negative. Case was discussed with Dr. Hung suggest he goes to a back to a higher level care facility that has GI, IR, pancreatic surgeons, as we are not able to fully meet his needs. Declined by [facility] in [place], call made to [facility] they will talk to their surgeon and GI and call us back. [facility] call us back and declined due to not having any beds. At the patient's request I did contact the on-call physician [facility] in [facility] who is a partner of the physician Dr. Padilla that initially took care of the patient placing the pancreatic drain and pancreatic stents. I discussed the laboratory findings as well as the radiographic findings with the on-call physician Dr. Rodarte and he recommended and stated that this was normal progression of improvement and that the patient did not need to be transferred and that the patient could resume antibiotics as well as pain medication for pain control and follow-up as previously scheduled. I did advise the patient of this information as that is what they were requesting. I did advise that if anything changes or worsens to immediately return to the emergency department for additional evaluation treatment and care. Medical Records I reviewed the patient's medical records. Lab Data I reviewed the patient's lab results. 07/07/23 21:04 07/07/23 21:04 Labs/Radiology: Radiology Impressions Chest X-Ray 07/07/23 21:49 IMPRESSION: No acute findings. Chest/Abdomen/Pelvis CT 07/07/23 22:25 IMPRESSION: 1. Small bilateral pleural effusions. 2. Bibasilar atelectasis versus infiltrate. 3. Coronary artery atherosclerotic calcifications. 4. Scattered subcentimeter short axis nonspecific mediastinal lymph nodes. IMPRESSION: 1. 13 cm fluid collection in the region of the pancreas containing air with a drainage catheter seen extending of the fluid collection into the stomach, overall fluid collection appears somewhat decreased in size compared to prior exam when it measured up to 22 cm. Finding likely reflects a pancreatic pseudocyst/abscess or perhaps a necrotic malignancy. Edema seen about the pancreas suggestive of active pancreatitis. Additionally diffuse gastric wall thickening is seen which may reflect associated gastritis. 2. Bilateral renal cysts, negative for follow-up advised. 3. Diverticulosis without diverticulitis. 4. Equivocal filling defects in the common femoral veins bilaterally, consider correlation with duplex venous ultrasound of lower extremities if concern for deep venous thrombosis exists. 5. Scattered subcentimeter retroperitoneal lymph nodes. 6. Urinary bladder wall thickening likely due to nondistention, please correlate for colitis. COMMENTS: Consistent with the [employer]'s Incidental Findings Committee white paper (J Am Terry Radiol 2018): Any incidental renal lesion less than 1 cm or classified as too small to characterize, or any incidental cystic renal lesion characterized as simple-appearing, is likely benign. No follow-up imaging is recommended for these lesions per consensus recommendations based on imaging criteria. ADDENDUM: 07/07/23 [id number] THIS REPORT CONTAINS FINDINGS THAT MAY BE CRITICAL TO PATIENT CARE. The findings were verbally communicated via telephone conference with ALYSSA LEIGH at 10:59 PM FLIGHT OPERATION COORDINATOR on 07/07/2023. The findings were acknowledged and understood. Venous Duplex 07/07/23 23:19 IMPRESSION: No evidence of deep vein thrombosis. Laboratory Results WBC 17.57 10^3/uL (3.29-11.43) H 07/07/23 21:04 RBC 3.89 10^6/uL (3.85-5.65) 07/07/23 21:04 Hgb 10.00 g/dL (11.27-16.99) L 07/07/23 21:04 Hct 32.7 % (37-53) L 07/07/23 21:04 MCV 84.1 fl (82-101) 07/07/23 21:04 MCH 25.7 pg (27-33) L 07/07/23 21:04 MCHC 30.6 g/dL (30-55) 07/07/23 21:04 RDW 15.2 % (12.1-15.1) H 07/07/23 21:04 Plt Count 369 10^3/cmm (157-399) 07/07/23 21:04 MPV 9.2 fL (7.4-10.4) 07/07/23 21:04 Neut % (Auto) 77.3 % 07/07/23 21:04 Lymph % (Auto) 8.4 % 07/07/23 21:04 [place] % (Auto) 12.4 % 07/07/23 21:04 Eos % (Auto) 1.0 % 07/07/23 21:04 Baso % (Auto) 0.4 % 07/07/23 21:04 Neut # (Auto) 13.58 10^3/uL (1.8-7.7) H 07/07/23 21:04 Lymph # (Auto) 1.5 10^3/uL (0.8-4.8) 07/07/23 21:04 [place] # (Auto) 2.2 10^3/uL (0.2-0.9) H 07/07/23 21:04 Eos # (Auto) 0.2 10^3/uL (0.0-0.8) 07/07/23 21:04 Baso # (Auto) 0.1 10^3/uL (0.0-0.1) 07/07/23 21:04 Nucleated RBC % (auto) 0 % 07/07/23 21:04 Nucleated RBCs # 0.0 /100WBC 07/07/23 21:04 ESR 80 mm/hr (0-10) H 07/07/23 21:04 Sodium 132 mmol/L (136-145) L 07/07/23 21:04 Potassium 4.1 mmol/L (3.5-5.1) 07/07/23 21:04 Chloride 95 mmol/L (98-107) L 07/07/23 21:04 Carbon Dioxide 23 mmol/L (22-29) 07/07/23 21:04 Anion Gap 18.1 (5-19) 07/07/23 21:04 BUN 13 mg/dL (8-23) 07/07/23 21:04 Creatinine 0.7 mg/dL (0.7-1.2) 07/07/23 21:04 GFR Calculation 114.6 mL/min (90-130) 07/07/23 21:04 Glucose 148 mg/dL (65-115) H 07/07/23 21:04 POC Glucose 119 mg/dL (70-110) H 07/08/23 09:29 Calculated Osmolality 277 mOsm/kg (285-295) L 07/07/23 21:04 Lactic Acid 0.9 mmol/L (0.5-2.2) 07/07/23 21:04 Calcium 10.2 mg/dL (8.5-10.5) 07/07/23 21:04 Total Bilirubin 0.7 mg/dL (0.15-1.2) 07/07/23 21:04 AST 12 U/L (0-40) 07/07/23 21:04 ALT 13 U/L (0-41) 07/07/23 21:04 Alkaline Phosphatase 99 U/L (40-130) 07/07/23 21:04 Troponin T Baseline 11 ng/L (0-15) 07/07/23 21:04 C-Reactive Protein 172.9 mg/L (0.0-4.9) H 07/07/23 21:04 Total Protein 7.5 g/dL (6.6-8.7) 07/07/23 21:04 Albumin 3.5 g/dL (3.5-5.2) 07/07/23 21:04 Globulin 4.0 g/dL (1.3-4.6) 07/07/23 21:04 Lipase 31 U/L (13-60) 07/07/23 21:04 Procalcitonin 0.18 ng/mL (0-0.5) 07/07/23 21:04 Urine Color Yellow (Yellow) 07/07/23 22:20 Urine Appearance Clear (CLEAR) 07/07/23 22:20 Urine pH 5 (5-7) 07/07/23 22:20 Ur Specific [place] 1.020 (1.005-1.030) 07/07/23 22:20 Urine Protein Trace (Negative) 07/07/23 22:20 Urine Glucose (UA) Norm (Normal) 07/07/23 22:20 Urine Ketones 1+ (Negative) H 07/07/23 22:20 Urine Blood Neg (Negative) 07/07/23 22:20 Urine Nitrate Negative (Negative) 07/07/23 22:20 Urine Bilirubin Neg (Negative) 07/07/23 22:20 Urine Urobilinogen Neg mg/dL (Negative) 07/07/23 22:20 Ur Leukocyte Esterase Negative (Negative) 07/07/23 22:20 Urine RBC None /hpf (0-2) 07/07/23 22:20 Urine WBC None /hpf (0-5) 07/07/23 22:20 Ur Squamous Epith Cells None /hpf (0-5) 07/07/23 22:20 Amorphous Sediment 1+ /hpf 07/07/23 22:20 Urine Bacteria Trace /hpf (NONE) 07/07/23 22:20 Urine Mucus 2+ /hpf 07/07/23 22:20 Discharge Plan Discharge Patient Disposition: Home Clinical Impression: Abscess of pancreas, Abdominal pain Condition: Stable Prescriptions: New levofloxacin 750 mg tablet 750 mg PO DAILY 14 Days Qty: 14 0RF metronidazole 500 mg tablet 500 mg PO Q8H 14 Days Qty: 42 0RF hydrocodone-acetaminophen 5-325 mg tablet 1 tab PO Q6H PRN (Reason: pain) Qty: 30 0RF ondansetron HCl 4 mg tablet 4 mg PO Q6H PRN (Reason: nausea and vomiting) Qty: 30 0RF No Action aspirin 81 mg tablet,delayed release (DR/EC) 81 mg PO DAILY docusate sodium 100 mg capsule 100 mg PO BID PRN (Reason: Constipation) Creon 24,000-76,000 -120,000 unit capsule,delayed release(DR/EC) 2 cap PO TID multivitamin Tablet 1 tab PO DAILY digestive enzymes Tablet 1 tab PO TID Lantus U-100 Insulin 100 unit/mL solution 15 unit SUBCUT BEDTIME zinc acetate 50 mg (zinc) Capsule 50 mg PO DAILY Fish Oil Concentrate 1,000 mg Capsule 1,000 mg PO DAILY Vitamin B-12 1,000 mcg Tablet 1,000 mcg PO DAILY Vitamin C 500 mg Tablet 500 mg PO DAILY Vitamin D3 25 mcg (1,000 unit) Capsule 25 mcg PO DAILY insulin aspart U-100 100 unit/mL (3 mL) insulin pen 5 unit SUBCUT TID PRN (Reason: blood sugar) atorvastatin 40 mg tablet 40 mg PO BEDTIME Discharge Orders: Discharge ED (Routine); Ordered 07/08/23 Ordered By: Shamar Villagomez Referrals: Bob Smith MD [Primary Care Provider] - Discharge Diet: Low Fat Discharge Activity: Resume usual activity Patient Instructions: Abdominal Pain (ED), Opioid Safety, Pain Management Activity Restrictions/Additional Instructions: Activity Restrictions/Additional Instructions: Thank you for choosing [facility] for your healthcare needs today. Please realize that you were seen in the Emergency Department and that we are providing you with an emergency medical screening exam and this may not be a complete and all inclusive of all the testing and or medical work-up that you may need to determine your ailment or severity of your illness. It is very important that you follow-up as instructed with your Primary care provider or Specialist for additional evaluation and to discuss your medical treatment plan. You may return to the Emergency Department should you have concerns or if your condition changes or worsens in any way. Coding Level of Care Code ED Dairy Farm Operator for Jose Alicia
[2023-07-07 21:33] LABS: Alanine Aminotransferase 13 U/L (0-41); Albumin Level 3.5 g/dL (3.5-5.2); Alkaline Phosphatase 99 U/L (40-130); Anion Gap 18.1 (5-19); Aspartate Amino Transferase 12 U/L (0-40); Blood Urea Nitrogen 13 mg/dL (8-23); Calcium 10.2 mg/dL (8.5-10.5); Carbon Dioxide 23 mmol/L (22-29); Chloride 95 mmol/L (98-107); Glomerular Filtration Rate 114.6 mL/min (90-130); Glucose 148 mg/dL (65-115); Lipase 31 U/L (13-60); Osmolality Calculated 277 mOsm/kg (285-295); Potassium 4.1 mmol/L (3.5-5.1); Sodium 132 mmol/L (136-145); Total Bilirubin 0.7 mg/dL (0.15-1.2); Total Protein 7.5 g/dL (6.6-8.7)
[2023-07-07 21:44] LABS: C Reactive Protein 172.9 mg/L (0.0-4.9)
[2023-07-07 21:47] LABS: Erythrocyte Sedimentation Rate 80 mm/hr (0-10)
[2023-07-07 21:48] VITALS: RESP 18
[2023-07-07 21:48] LABS: Troponin(5th) Baseline 11 ng/L (0-15)
[2023-07-07] MEDS: morphine 4 mg/mL SDV 1 mL IVP (21:48)
--- NOTE | 2023-07-07 21:49 | XRR_ITS ---
PROCEDURE INFORMATION: Exam: XR Chest Exam date and time: 07/07/2023 10:05 PM Age: 63 years old Clinical indication: Fever; Additional info: Cp, low, retrosternal pain/epigastric pain TECHNIQUE: Imaging protocol: Radiologic exam of the chest. Views: 1 view. COMPARISON: CT chest w con* [id number] 05/17/2023 3:47 AM FINDINGS: Lungs: Unremarkable. No consolidation. Pleural spaces: Unremarkable. No pleural effusion. No pneumothorax. Heart/Mediastinum: Unremarkable. No cardiomegaly. Bones/joints: Unremarkable. XR/XR chest 1V [id number] IMPRESSION: No acute findings.
[2023-07-07 21:51] VITALS: BP 130/79; PULSE 107; RESP 18; O2SAT 91
--- NOTE | 2023-07-07 22:25 | CTR_ITS ---
PROCEDURE INFORMATION: Exam: CT Chest With Contrast; Diagnostic Exam date and time: 07/07/2023 10:35 PM Age: 63 years old Clinical indication: Abdominal pain; Other: Upper abd; Prior surgery; Surgery date: 6+ months; Surgery type: Stents in pancreas; Additional info: Epi pain, HX of panc abscess w/stent. Pain today, elevated wbc TECHNIQUE: Imaging protocol: Diagnostic computed tomography of the chest with contrast. Radiation optimization: All CT scans at this facility use at least one of these dose optimization techniques: automated exposure control; mA and/or kV adjustment per patient size (includes targeted exams where dose is matched to clinical indication); or iterative reconstruction. Contrast material: OMNI 350; Contrast volume: 100 ml; Contrast route: INTRAVENOUS (IV); COMPARISON: CT chest w con* [id number] 05/17/2023 3:47 AM RADIATION DOSE METRICS: Total DLP (mGy-cm): 1268.51 FINDINGS: Lungs: Bibasilar atelectasis versus infiltrate. Pleural spaces: Small bilateral pleural effusions. Heart: Unremarkable. No cardiomegaly. No pericardial effusion. Coronary arteries: Coronary artery atherosclerotic calcifications. Lymph nodes: Scattered subcentimeter short axis nonspecific mediastinal lymph nodes. Vasculature: Unremarkable. No aortic aneurysm. Bones/joints: Unremarkable. No acute fracture. Soft tissues: Unremarkable. PROCEDURE INFORMATION: Exam: CT Abdomen And Pelvis With Contrast Exam date and time: 07/07/2023 10:35 PM Age: 63 years old Clinical indication: Abdominal pain; Other: Upper abd; Prior surgery; Surgery date: 6+ months; Surgery type: Stents in pancreas; Additional info: Epi pain, HX of panc abscess w/stent. Pain today, elevated wbc TECHNIQUE: Imaging protocol: Computed tomography of the abdomen and pelvis with contrast. Radiation optimization: All CT scans at this facility use at least one of these dose optimization techniques: automated exposure control; mA and/or kV adjustment per patient size (includes targeted exams where dose is matched to clinical indication); or iterative reconstruction. Contrast material: OMNI 350; Contrast volume: 100 ml; Contrast route: INTRAVENOUS (IV); COMPARISON: CT abdomen pelvis w con* [id number] 05/17/2023 3:56 AM RADIATION DOSE METRICS: Total DLP (mGy-cm): 1268.51 FINDINGS: Liver: Normal. No mass. Gallbladder and bile ducts: Normal. No calcified stones. No ductal dilation. Pancreas: 13 cm fluid collection in the region of the pancreas containing air with a drainage catheter seen extending of the fluid collection into the stomach, overall fluid collection appears somewhat decreased in size compared to prior exam when it measured up to 22 cm. Edema seen about the pancreas suggestive of active pancreatitis. Additionally diffuse gastric wall thickening is seen which may reflect associated gastritis. Spleen: Normal. No splenomegaly. Adrenal glands: Normal. No mass. Kidneys and ureters: Bilateral renal cysts, negative for follow-up advised. Stomach and bowel: Diverticulosis without diverticulitis. Appendix: No evidence of appendicitis. Intraperitoneal space: Unremarkable. No free air. No significant fluid collection. Vasculature: Equivocal filling defects in the common femoral veins bilaterally, consider correlation with duplex venous ultrasound of lower extremities if concern for deep venous thrombosis exists. Lymph nodes: Scattered subcentimeter retroperitoneal lymph nodes. Urinary bladder: Urinary bladder wall thickening likely due to nondistention, please correlate for colitis. Reproductive: Unremarkable as visualized. Bones/joints: Unremarkable. No acute fracture. Soft tissues: Unremarkable. CT/CT chest abdpel w/*[id number] IMPRESSION: 1. Small bilateral pleural effusions. 2. Bibasilar atelectasis versus infiltrate. 3. Coronary artery atherosclerotic calcifications. 4. Scattered subcentimeter short axis nonspecific mediastinal lymph nodes. IMPRESSION: 1. 13 cm fluid collection in the region of the pancreas containing air with a drainage catheter seen extending of the fluid collection into the stomach, overall fluid collection appears somewhat decreased in size compared to prior exam when it measured up to 22 cm. Finding likely reflects a pancreatic pseudocyst/abscess or perhaps a necrotic malignancy. Edema seen about the pancreas suggestive of active pancreatitis. Additionally diffuse gastric wall thickening is seen which may reflect associated gastritis. 2. Bilateral renal cysts, negative for follow-up advised. 3. Diverticulosis without diverticulitis. 4. Equivocal filling defects in the common femoral veins bilaterally, consider correlation with duplex venous ultrasound of lower extremities if concern for deep venous thrombosis exists. 5. Scattered subcentimeter retroperitoneal lymph nodes. 6. Urinary bladder wall thickening likely due to nondistention, please correlate for colitis. COMMENTS: Consistent with the [employer]'s Incidental Findings Committee white paper (J Am Terry Radiol 2018): Any incidental renal lesion less than 1 cm or classified as too small to characterize, or any incidental cystic renal lesion characterized as simple-appearing, is likely benign. No follow-up imaging is recommended for these lesions per consensus recommendations based on imaging criteria.
[2023-07-07 22:28] LABS: Lactic Sepsis W/Reflex 0.9 mmol/L (0.5-2.2)
[2023-07-07 22:33] LABS: Add Urine Microscopic? YES; Bilirubin Urine Neg (Negative); Blood Urine Neg (Negative); Glucose Urine UA Norm (Normal); Ketones Urine 1+ (Negative); Leukocyte Esterase Urine Negative (Negative); Nitrate Urine Negative (Negative); Protein Urine Trace (Negative); Urine Appearance Clear (CLEAR); Urine Color Yellow (Yellow); Urobilinogen Urine Neg (Negative); pH Urine 5 (5-7)
[2023-07-07 22:34] LABS: Add Urine Culture? No; Amorphous Sediment Urine 1+ /hpf; Bacteria Urine TRACE /hpf; Mucus Urine 2+ /hpf
[2023-07-07 22:40] LABS: Procalcitonin 0.18 ng/mL (0-0.5)
[2023-07-07] MEDS: iohexol 350 mg/mL 500 mL Btl (per mL) IV (22:47)
[2023-07-07 23:17] VITALS: BP 144/80; PULSE 110; RESP 16; O2SAT 92
--- NOTE | 2023-07-07 23:17 | ECG_ITS ---
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 Measurements Intervals [place] Rate: 104 P: 66 KS: 156 QRS: 50 QRSD: 85 T: 72 QT: 332 QTc: 438 Interpretive Statements SINUS TACHYCARDIA ABNORMAL RHYTHM ECG Compared to ECG 07/07/2023 21:38:07 No significant changes Electronically Signed On 07-08-2023 18:34:29 MOBILE APPLICATION ENGINEER by Hector Hagan M.D. [id number]
--- NOTE | 2023-07-07 23:19 | USR_ITS ---
PROCEDURE INFORMATION: Exam: US Duplex Lower Extremity Veins, Bilateral Exam date and time: 07/08/2023 12:00 AM Age: 63 years old Clinical indication: Abnormal findings; Abnormal imaging study of limbs; Abnormal CT, vrad concerned for femoral vein occlusions on CT pelvis-; Additional info: Abnormal CT, vrad concerned for femoral vein occlusions on CT pelvis- TECHNIQUE: Imaging protocol: Real-time duplex ultrasound of the bilateral extremities with 2-D garcia scale, color Doppler flow and spectral waveform analysis including responses to compression and other maneuvers (when performed) with image documentation. Complete exam focused on the lower extremity veins. COMPARISON: CT chest abdpel w/contrast 07/07/2023 10:35 PM FINDINGS: Right deep veins: Unremarkable. The common femoral, femoral, proximal profunda femoral and popliteal veins are patent without thrombus. Normal Doppler waveforms. Normal compressibility and/or augmentation response. Left deep veins: Unremarkable. The common femoral, femoral, proximal profunda femoral and popliteal veins are patent without thrombus. Normal Doppler waveforms. Normal compressibility and/or augmentation response. US/CV venous duplex [facility] [id number] IMPRESSION: No evidence of deep vein thrombosis.
[2023-07-07] MEDS: sodium chloride 0.9% 1,000 ML 125 ML IV (23:54)
[2023-07-08] VITALS (40 sets, daily range): BP systolic 108–142; BP diastolic 51–85; PULSE 79–121; RESP 15–16; O2SAT 16–97
--- NOTE | 2023-07-08 03:17 | ECG_ITS ---
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 Measurements Intervals [place] Rate: 99 P: 59 VT: 158 QRS: 43 QRSD: 86 T: 60 QT: 336 QTc: 432 Interpretive Statements SINUS RHYTHM Compared to ECG 07/08/2023 00:15:48 Sinus tachycardia no longer present Electronically Signed On 07-08-2023 18:34:09 OFFICE DIRECTOR by Hector Hagan M.D. [id number]
[2023-07-08] MEDS: piperacillin-tazobactam 3.375 GM in sodium chloride 0.9% (plus) 50 ML IV (04:42)
[2023-07-08] MEDS: morphine 4 mg/mL SDV 1 mL IVP (04:48)
[2023-07-08] MEDS: sodium chloride 0.9% 1,000 ML 999 ML IV (08:20)
[2023-07-08] MEDS: levofloxacin-dextrose 5 % 750 MG/150 ML PREMIX 100 MG IV (08:20)
[2023-07-08] MEDS: metroNIDAZOLE IV 500 MG/100 ML PREMIX 100 MG IV (08:26)
[2023-07-08] MEDS: ondansetron 2 mg/ML SDV 2 mL 4 MG IVP (08:30)
[2023-07-08] MEDS: fentaNYL 50 mcg/mL INJ 2mL IVP (08:36)
--- NOTE | 2023-07-08 09:07 | PC.PHAR ---
pt states he takes care of his own medications-pt states he dced his carvedilol 25mg bid filled 06/04/23 90d/s,lisinopril 20mg daily filled 01/10/23 90d,s and metoprolol tartrate 100mg q12h states he dced about 2 months ago-pt states the creon 24,000 is to expensive to take ext shows last filled 2 cap tid 06/12/23 10d/s-notes are made in the pharmacy comments
--- NOTE | 2023-07-08 09:23 | PC.NURSE ---
PT PLACED ON 2L NC. PHYSICIAN NOTIFIED
--- NOTE | 2023-07-08 09:30 | PC.NURSE ---
BG 119
[2023-07-08 09:31] LABS: Glucose Point of Care 119 mg/dL (70-110)
== END 2023-07-08 11:24 | disposition home or self-care (01) ==
PROVIDERS: Emergency Medicine; Physician Assistant; Emergency Provider Internal Medicine; PCP Family Medicine
DX: K85.90 Acute pancreatitis without necrosis or infection, unspecified (principal); R10.13 Epigastric pain; Z79.82 Long term (current) use of aspirin; Z79.4 Long term (current) use of insulin; I10 Essential (primary) hypertension
CPT/HCPCS: 36415; 36416; 71045; 71260; 74177; 80053; 81001; 82962; 83605; 83690; 84145; 84484; 85025; 85651; 86140; 87040; 93005; 93970; 96365; 96366; 96367; 96375; 96376; 99285; J1956; J2270; J2405; J2543; J2765; J3010; J3490; J7030; Q9967

== ENCOUNTER → 2024-04-28 12:32 | Outpatient (BNVA) | payer OTHER, SELFPAY | PROVIDERS: PCP Family Medicine; Visit Provider Internal Medicine | DX: E10.9 Type 1 diabetes mellitus without complications (principal); E78.2 Mixed hyperlipidemia; K86.2 Cyst of pancreas | CPT/HCPCS: 36415; 80053; 80061; 82044; 82306; 83036 ==

== ENCOUNTER 2024-07-26 09:56 | Outpatient (CLI) | payer OTHER, SELFPAY ==
[2024-07-26 11:12] LABS: Estmated Average Glucose 154
[2024-07-26 11:19] LABS: Creatinine Urine, Random 127 mg/dL (39-259); Microalbum Creatinine Ratio Ur 8 mg/dL (0-20); Microalbumin Random Urine 1 ug/dL (0-20)
[2024-07-26 12:18] LABS: Albumin Level 4.4 g/dL (3.5-5.2); Alkaline Phosphatase 87 U/L (40-130); Chloride 102 mmol/L (98-107); Cholesterol 196 mg/dL (0-200); LDL Cholesterol Calculated 123 mg/dL (50-129); LDL HDL Ratio 3.08 RATIO (0.00-3.22); Potassium 4.2 mmol/L (3.5-5.1); Sodium 140 mmol/L (136-145)
[2024-07-26 12:47] LABS: Anion Gap 14.2 (5-19); Aspartate Amino Transferase 27 U/L (0-40); Blood Urea Nitrogen 14 mg/dL (8-23); Calcium 9.7 mg/dL (8.5-10.5); Carbon Dioxide 26 mmol/L (22-29); Globulin 2.5 g/dL (1.3-4.6); Glucose 94 mg/dL (65-115); Osmolality Calculated 290 mOsm/kg (285-295); Total Bilirubin 0.6 mg/dL (0.15-1.2); Total Protein 6.9 g/dL (6.6-8.7)
[2024-07-26 12:49] LABS: Alanine Aminotransferase 47 U/L (0-41); HDL Cholesterol 40 mg/dL (60-100); Triglycerides 167 mg/dL (0-150)
== END 2024-07-26 09:57 | disposition home or self-care (01) ==
PROVIDERS: PCP Family Medicine; Visit Provider Internal Medicine
DX: E10.9 Type 1 diabetes mellitus without complications (principal); E78.2 Mixed hyperlipidemia; K86.2 Cyst of pancreas
CPT/HCPCS: 36415; 80053; 80061; 82044; 83036

== ENCOUNTER 2024-10-17 21:02 | Emergency (ER) | payer OTHER, SELFPAY ==
[2024-10-17 21:09] VITALS: BP 148/95; PULSE 74; TEMP 36.8; O2SAT 95; BMI 34.4
[2024-10-17 23:59] VITALS: BP 138/80; PULSE 66; O2SAT 94
[2024-10-18] VITALS: BP 138/80; O2SAT 92
[2024-10-18 00:30] VITALS: BP 138/80; PULSE 67; O2SAT 93
--- NOTE | 2024-10-18 00:49 | W.ED.SKABFB ---
HPI - Skin/Abscess/Foreign Bdy General: Chief complaint: Skin/Abscess/Foreign Body Stated complaint: Left Leg Boil-2 Time Seen by Provider: 10/18/24 00:14 History of Present Illness: 64-year-old male who 3 days ago noticed an irritated spot on his upper left inner thigh. It began to get red, warm, and swell. It drained the next day. It continues to drain, but the redness continues to increase to some degree, and pain increased last evening. He denies fever. He denies vomiting. He is diabetic. Related Data Previous Rx's ?Medication ?Instructions ?Recorded subcutaneous insulin pump (MiniMpoLight #1 ea 04/28/24 780G Insulin Pump) ezetimibe 10 mg tablet (Zetia) 10 mg PO DAILY 30 days #30 tabs 09/29/24 insulin aspart U-100 100 unit/mL 80 unit (0.8 mL) continuous 10/04/24 subcutaneous solution (Novolog subcutaneous infusion DAILY #80 mL U-100 Insulin aspart) clindamycin HCl 300 mg capsule 300 mg PO Q6H 10 days #40 caps 10/18/24 hydrocodone 5 mg-acetaminophen 325 1 tab PO Q8H PRN pain #7 tabs 10/18/24 mg tablet Allergies Allergy/AdvReac Type Severity Reaction Status Date / Time No Known Allergies Allergy Verified 10/17/24 21:14 [facility] PFSH: Medical History Hx of angiography Alcohol abuse Hypertension Surgical History Hx laparoscopic cholecystectomy S/P anal fissurectomy Family History Mother Diabetes Father Cancer prostate Brother Prostate cancer Social History Smoking and tobacco/nicotine status: never used tobacco/nicotine Alcohol intake: former Substance/Drug Use: current Physical Exam Const: COMMON NORMALS: no acute distress GENERAL APPEARANCE: cooperative; not ill appearing and not frail appearing HENMT: COMMON NORMALS: normocephalic, atraumatic and Normal external nose present HEAD & SCALP: normocephalic and atraumatic FACE & SINUS: normal facial exam and face symmetric NOSE: Normal external nose present Eye: COMMON NORMALS: Equal, round and reactive pupils present and EOMs intact bilaterally PUPIL: Yes Equal, round and reactive pupils present Neck/C-Spine: GENERAL: Yes trachea midline Chest: CHEST: Yes Symmetrical chest wall rise Resp: COMMON NORMALS: normal respiratory effort, No retractions, No use of accessory muscles and clear to auscultation bilaterally AUSCULTATION: clear to auscultation bilaterally Cardio: COMMON NORMALS: regular rate and regular rhythm RATE: regular rate RHYTHM: regular rhythm GI: COMMON NORMALS: Normal to inspection, nondistended, normoactive bowel sounds present Extremity: COMMON NORMALS: no pedal edema Neuro: ANNETTA COMA SCALE: document GCS findings Annetta coma scale eye opening: Spontaneous [place] coma scale verbal response: Orientated Annetta coma scale motor response: Obey commands [place] coma scale total score: 15 SENSORY EXAM: Yes extremities (intact) Psych: COMMON NORMALS: speech normal SPEECH: Yes normal speech Skin: NARRATIVE SKIN EXAM: Tender red and warm indurated area to the upper inner thigh. Inguinal lymph nodes swollen and tender as well on the left. No fluctuant drainable mass palpated. Course Vital Signs: Vital signs: Vital Signs Temperature 98.3 F 10/17/24 21:09 Pulse Rate 60 10/18/24 03:56 Blood Pressure 147/98 10/18/24 03:56 Pulse Oximetry 93 10/18/24 03:56 Oxygen Delivery Me thod Room Air 10/18/24 00:00 MDM - Skin/Abscess/Foreign Bdy Medicial Decision Making Bedside ultrasound does not reveal a fluid collection or loculation consistent with abscess under the indurated area. There are some inguinal lymph nodes present that are tender. Abscess not likely organized, as it drained early. Treating cellulitis with IV clindamycin here. Home on clindamycin. To return for any worsening symptoms. No radiology studies performed this visit Discharge Plan Discharge Patient Disposition: Home Clinical Impression: Abscess of skin or subcutaneous tissue, Cellulitis Condition: Stable Prescriptions: New clindamycin HCl 300 mg capsule 300 mg PO Q6H 10 Days Qty: 40 0RF hydrocodone-acetaminophen 5-325 mg tablet 1 tab PO Q8H PRN (Reason: pain) Qty: 7 0RF No Action (DME) MiniMed 780G Insulin Pump Misc See Rx Instructions .Route Qty: 1 0RF Rx Instructions: As directed ezetimibe [Zetia] 10 mg tablet 10 mg PO DAILY 30 Days Qty: 30 3RF insulin aspart U-100 [Novolog U-100 Insulin aspart] 100 unit/mL solution 80 unit continuous subcutaneous infusion DAILY Qty: 80 1RF Rx Instructions: 80 units daily via insulin pump Discharge Orders: Discharge ED (Routine); Ordered 10/18/24 Ordered By: Deuce Mchugh Referrals: Femi Gray MD [Primary Care Provider, Family Practice] - 1-3 days Patient Instructions: Abscess (ED), Opioid Safety, Pain Management Activity Restrictions/Additional Instructions: Antibiotics as directed. Monitor your temperature closely for fever. Return to the emergency department for increased redness, hardness, swelling, or fever despite 3-4 doses of antibiotics, vomiting liquids, or any other concerning symptoms. See your doctor in 48 hours for wound check. Continue with antibiotic ointment and warm compresses to dry out infection. Print Language: [place] Coding Level of Care Code ED Retail Management Trainee for Jose Alicia
[2024-10-18 01:00] VITALS: BP 138/84; PULSE 61; O2SAT 91
[2024-10-18] MEDS: ondansetron 2 mg/ML SDV 2 mL 4 MG IVP (01:13)
[2024-10-18] MEDS: morphine 4 mg/mL SDV 1 mL IVP (01:13)
[2024-10-18] MEDS: clindamycin 900 MG/50 ML PREMIX 100 MG IV (01:19)
[2024-10-18 01:30] VITALS: BP 138/84; PULSE 65; O2SAT 91
[2024-10-18 03:56] VITALS: BP 147/98; PULSE 60; O2SAT 93
== END 2024-10-18 01:48 | disposition home or self-care (01) ==
PROVIDERS: Emergency Provider Emergency Medicine; PCP Family Medicine
DX: L02.416 Cutaneous abscess of left lower limb (principal); L03.116 Cellulitis of left lower limb; Z79.4 Long term (current) use of insulin; I10 Essential (primary) hypertension
CPT/HCPCS: 96374; 96375; 99284; J2270; J2405; J3490

== ENCOUNTER → 2025-02-28 11:35 | Outpatient (BNVA) | payer OTHER, SELFPAY | PROVIDERS: PCP Family Medicine; Visit Provider Internal Medicine | DX: E10.9 Type 1 diabetes mellitus without complications (principal) | CPT/HCPCS: 36415; 80053; 80061; 82044; 83036 ==